=== PATIENT | female | born 1940 | race Caucasian/White ===

== ENCOUNTER 2018-07-24 10:39 | Inpatient (IN) | payer MEDICARE, OTHER ==
[~2018-07-24] VITALS: Ht 149.9 cm; Wt 75.2 kg
[2018-07-24] MEDS ORDERED: IPRATROPIUM (NEB) 0.5 MG/2.5 ML AMP INH STA (10:58)
[2018-07-24] MEDS ORDERED: ALBUTEROL 0.5% (NEB) 2.5 MG/0.5 ML AMP INH STA (10:58)
[2018-07-24] MEDS ORDERED: SOD CHLORIDE 0.9% 500 ML IV STA (10:58)
[2018-07-24] MEDS ORDERED: ASPIRIN 325 MG TAB PO ONE (13:00)
[2018-07-24] MEDS ORDERED: ONDANSETRON 4 MG INJ IV PRN ×2 (13:30→14:00)
[2018-07-24] MEDS ORDERED: ACETAMINOPHEN 325 MG TAB PO PRN (13:30)
[2018-07-24] MEDS ORDERED: LOSA100T15 PO (13:40)
[2018-07-24] MEDS ORDERED: WARF2.5T PO (13:41)
[2018-07-24] MEDS ORDERED: CARV12.579 PO (13:41)
[2018-07-24] MEDS ORDERED: FURO40TA4 PO (13:41)
[2018-07-24] MEDS ORDERED: ERGO2000 PO (13:42)
[2018-07-24] MEDS ORDERED: ASPI81TA52 PO (13:42)
--- NOTE | 2018-07-24 13:57 | ERD ---
ER Documentation Chief Complaint Chief Complaint SOB X 2 WEEKS , WORSE TODAY WITH CHEST PRESSURE AND BACK PAIN HPI This is an 78-year-old Ni[place]an-speaking female that presents to the emergency department complaining of generalized weakness for the past 2 weeks. The patient indicates that she has been experiencing shortness of breath. She indicates that the shortness of breath is worse with exertion. She denies any swelling of her lower extremities. She is also experiencing paroxysmal nocturnal dyspnea. She indicates she has a history of chronic back pain but denies any changes in her bladder or bowel frequency, no saddle anesthesia. She also indicates that this morning upon awakening she developed chest pressure. She stated the chest pain was a dull achy sensation on the midportion of her chest that did not radiate to the neck arm back or jaw. She denies any recent travel or prolonged immobilization. The patient takes Coumadin and has an AICD. ROS All systems reviewed and are negative except as per history of present illness. Medications Home Meds Reported Medications Aspirin (Low Dose Aspirin) 81 Mg Tablet.dr, 81 MG PO DAILY, #30 TAB 07/24/18 Ergocalciferol (Vitamin D2) (VITAMIN D2) 2,000 Unit Tablet, 2000 UNIT PO DAILY, TAB 07/24/18 Carvedilol* (Carvedilol*) 12.5 Mg Tablet, 12.5 MG PO BID, #60 TAB 07/24/18 Furosemide* (Furosemide*) 40 Mg Tablet, 40 MG PO DAILY, TAB 07/24/18 Warfarin Sodium* (Coumadin*) 2.5 Mg Tablet, 2.5 MG PO DAILY, TAB 07/24/18 Losartan Potassium* (Losartan Potassium*) 100 Mg Tablet, 100 MG PO DAILY, TAB 07/24/18 Allergies Allergies: Coded Allergies: No Known Allergy (Unverified , 07/24/18) PMhx/Soc History of Surgery: Yes (pacemaker october 2017) Anesthesia Reaction: No Hx Neurological Disorder: No Hx Respiratory Disorders: No Hx Cardiac Disorders: Yes (htn) Hx Psychiatric Problems: No Hx Miscellaneous Medical Probl: No Hx Alcohol Use: No Hx Substance Use: No Hx Tobacco Use: No Smoking Status: Never smoker Physical Exam Vitals Vital Signs Date Temp Pulse Resp B/P (MAP) Pulse Ox O2 O2 Flow FiO2 Time Delivery Rate 07/24/18 75 22 100 21 12:43 07/24/18 Nasal 2.0 10:52 Cannula 07/24/18 98.8 84 28 148/55 100 10:41 (86) Physical Exam Constitutional:Well-developed. Well-nourished. HEENT:Normocephalic. Atraumatic.Pupils were equal round reactive to light. Moist mucous membranes.No tonsillar exudates. Neck: No nuchal rigidity. No lymphadenopathy. No posterior cervical spine tenderness or step-offs. Respiratory: Not using accessory muscles of respiration.Lungs were clear to auscultation bilaterally. No rhonchi. No rales. Bilateral rhonchi Cardiovascular: Regular rate regular rhythm. S1-S2 is normal. No murmurs. No rubs. GI: Abdomen was soft. Nontender. Non Distended. No pulsatile abdominal masses or bruits. No rebound. No guarding. Bowel sounds were present and normal. Muscle skeletal: Full range of motion of both the upper and lower extremities bilaterally.Normal muscle tone.No assymetrical calf tenderness or swelling. Skin: No petechia, no purpura. No lesions on the palms or the soles of the feet. No maculopapular rash. NEURO: Patient was alert, awake, orientated x3.No facial droop. Gait observed and normal with no ataxia.Speech had regular rate and rhythm. No focal neurological deficits. Result Diagram: 07/24/18 1054 07/24/18 1054 Results 24 hrs Laboratory Tests Test 07/24/18 10:54 White Blood Count 2.6 10^3/ul Red Blood Count 4.08 10^6/ul Hemoglobin 12.7 g/dl Hematocrit 40.0 % Mean Corpuscular Volume 98.0 fl Mean Corpuscular Hemoglobin 31.1 pg Mean Corpuscular Hemoglobin Concent 31.8 g/dl Red Cell Distribution Width 13.8 % Platelet Count 110 10^3/UL Mean Platelet Volume 10.1 fl Immature Granulocytes % 0.000 % Neutrophils % % Segmented Neutrophils % (Manual) 50 % Band Neutrophils % (Manual) 24 % Lymphocytes % % Lymphocytes % (Manual) 24 % Monocytes % % Monocytes % (Manual) 1 % Eosinophils % % Eosinophils % (Manual) 2 % Basophils % % Nucleated Red Blood Cells % 0.0 /100WBC Immature Granulocytes # 0.000 10^3/ul Neutrophils # 10^3/ul Neutrophils # (Manual) 1.3 10^3/ul Band Neutrophils # 0.6 10^3/ul Lymphocytes (Manual) 0.6 10^3/ul Lymphocytes # 10^3/ul Monocytes # 10^3/ul Monocytes # (Manual) 0.0 10^3/ul Eosinophils # 10^3/ul Basophils # 10^3/ul Nucleated Red Blood Cells # 10^3/ul Platelet Estimate DECREASED Polychromasia 3+ Poikilocytosis 1+ Anisocytosis 1+ Tear Drop Cells 1+ Prothrombin Time 23.5 Sec Prothrombin Time Ratio 1.8 INR International Normalized Ratio 2.08 Activated Partial Thromboplast Time 36.3 Sec Sodium Level 143 mmol/L Potassium Level 5.1 mmol/L Chloride Level 108 mmol/L Carbon Dioxide Level 23 mmol/L Anion Gap 12 Blood Urea Nitrogen 54 mg/dl Creatinine 2.23 mg/dl Est Glomerular Filtrat Rate mL/min mL/min Glucose Level 85 mg/dl Calcium Level 9.1 mg/dl Total Bilirubin 0.6 mg/dl Direct Bilirubin 0.00 mg/dl Indirect Bilirubin 0.6 mg/dl Aspartate Amino Transf (AST/SGOT) 123 IU/L Alanine Aminotransferase (ALT/SGPT) 116 IU/L Alkaline Phosphatase 160 IU/L Troponin I 0.160 ng/ml B-Type Natriuretic Peptide 8390 PG/ML Total Protein 7.8 g/dl Albumin 4.2 g/dl Globulin 3.60 g/dl Albumin/Globulin Ratio 1.16 Amylase Level 113 U/L Lipase 87 U/L Current Medications Medications Dose Sig/Daniela Start Time Status Last (Trade) Ordered Route PRN Stop Time Admin Dose Reason Admin Sodium 500 ml @ Q1H STAT 07/24/18 DC Chloride 500 mls/hr IV 10:58 07/24/18 11:57 Albuterol 10 mg ONCE STAT 07/24/18 DC 07/24/18 (Proventil INH 10:58 12:40 0.5% (Neb)) 07/24/18 11:03 Ipratropium 1 mg ONCE STAT 07/24/18 DC 07/24/18 [place] INH 10:58 12:40 (Atrovent 07/24/18 11:03 0.02% (Neb)) Aspirin 325 mg ONCE ONCE 07/24/18 DC (Aspirin) PO 13:00 07/24/18 13:44 Ondansetron 4 mg ER BRIDGE 07/24/18 HCl (Zofran PRN IV 13:30 Inj) NAUSEA/VOMITI 07/25/18 13:29 NG 650 mg ER BRIDGE 07/24/18 Acetaminophen PRN PO 13:30 (Tylenol .MILD PAIN 07/25/18 13:29 Tab) 1-3 OR TEMP Procedures/MDM The patient presented to the emergency department with chest pain. My clinical evaluation and workup was to distinguish minor causes of chest pain from acute life threatening conditions such as myocardial infarction, pulmonary embolism, aortic dissection, esophageal rupture, cardiac tamponade. The patient was placed on a secured entrance monitor and continuous pulse oximetry. IV access established by nursing staff. The patient was given aspirin. 12 Lead EKG tracing ordered and reviewed by myself showed: Normal sinus rhythm of 81 bpm and no arrhythmia. SC interval normal. QRS duration normal. No ST segment elevation No ST segment depression. No changes consistent with acute ischemia. The patient was also complaining of shortness of breath. The patient however I did not feel was experiencing a pulmonary embolism. The patient a low pretest probability according to the Wells criteria the patient is currently on Coumadin. Chest radiograph was reviewed by myself the radiologist indicate the following: No acute cardiopulmonary disease. Cardiomegaly with left-sided AICD in place. The patient's troponin was elevated . she had received aspirin. The troponin was 0.160. The patient's BNP was also elevated at 8390. She does also have renal disease which could be exacerbating the BMP but given her symptoms I did feel required admission for serial twelve-lead EKG tracings and cardiac set of enzymes. She received nebulizer treatments of albuterol and Atrovent was significantly improved her dyspnea in addition to intravenous Lasix. The patient will be admitted to the hospitalist Dr. Zavaleta to the telemetry service. Critical Care: Time: 40 minutes Treatments/Evaluations: Close monitoring and treatment of unstable vital signs, cardiorespiratory, and neurologic status, while maintaining tight balance of fluid, respiratory, and cardiac interventions. Time does not include performing any of the above billable procedures. Departure Diagnosis: Primary Impression: Non-STEMI (non-ST elevated myocardial infarction) Additional Impression: CHF (congestive heart failure) Heart failure type: unspecified Heart failure chronicity: acute Qualified Codes: I50.9 - Heart failure, unspecified Condition: Serious RAMÓN SAGE MD July 24, 2018 13:57
[2018-07-24] MEDS ORDERED: FUROSEMIDE 40 MG INJ IV ONE (14:00)
[2018-07-24] MEDS ORDERED: HYDROCODONE/APAP (5/325) TAB PO PRN (14:00)
[2018-07-24] MEDS ORDERED: ZOLPIDEM 5 MG TAB PO PRN (14:00)
[2018-07-24] MEDS ORDERED: morphine 2 MG INJ IV PRN (14:00)
[2018-07-24] MEDS ORDERED: NACL 0.9% 3 ML SYG IV SCH (14:00)
[2018-07-24] MEDS ORDERED: DOCUSATE SODIUM 100 MG CAP PO PRN (14:00)
--- NOTE | 2018-07-24 14:06 | HP ---
Date/Time of Note Date/Time of Note DATE: 07/24/18 TIME: 13:58 Assessment/Plan VTE Prophylaxis SCD applied (from Nsg): Yes Pharmacological prophylaxis: NA/contraindicated Pharm contraindication: blood coag disorder Lines/Catheters IV Catheter Type (from Nrsg): Saline Lock Assessment/Plan Hospital Course 1. Chest pain with radiation to the back Patient with mild elevation of troponin in setting of renal failure Aspirin and statin Cardiology consultation obtained Follow-up echo Patient is currently denying any chest pain Follow-up on troponins, A1c and lipid profile 2. Acute respiratory distress Chest x-ray with no evidence of failure or pneumonia, lung sounds are normal BNP is slightly elevated but in the setting of renal failure Lasix IV for possible mild congestion Supplement oxygen as needed 3. History of VA with subsequent AICD placement Continue home cardiac meds Cardiology consultation obtained 2D echo 4. Bicytopenia with leukopenia and thrombocytopenia Monitor 5. Transaminitis Ultrasound the abdomen to evaluate for cirrhosis Hepatitis viral panel Patient with leukopenia, thrombocytopenia and macrocytosis all of which are suspicious for liver disease 6. Acute versus chronic kidney disease Baseline renal function is unknown Nephrology consultation obtained Renal ultrasound 7. Obesity Ultrasound abdomen to evaluate for [place] Prophylaxis: SCDs Result Diagram: 07/24/18 1054 07/24/18 1054 Results 24hrs Laboratory Tests Test 07/24/18 10:54 White Blood Count 2.6 L Red Blood Count 4.08 L Hemoglobin 12.7 Hematocrit 40.0 Mean Corpuscular Volume 98.0 Mean Corpuscular Hemoglobin 31.1 Mean Corpuscular Hemoglobin Concent 31.8 L Red Cell Distribution Width 13.8 Platelet Count 110 L Mean Platelet Volume 10.1 Immature Granulocytes % 0.000 L Neutrophils % Segmented Neutrophils % (Manual) 50 Band Neutrophils % (Manual) 24 H Lymphocytes % Lymphocytes % (Manual) 24 Monocytes % Monocytes % (Manual) 1 Eosinophils % Eosinophils % (Manual) 2 Basophils % Nucleated Red Blood Cells % 0.0 Immature Granulocytes # 0.000 Neutrophils # Neutrophils # (Manual) 1.3 L Band Neutrophils # 0.6 Lymphocytes (Manual) 0.6 L Lymphocytes # Monocytes # Monocytes # (Manual) 0.0 L Eosinophils # Basophils # Nucleated Red Blood Cells # Platelet Estimate DECREASED Polychromasia 3+ Poikilocytosis 1+ Anisocytosis 1+ Tear Drop Cells 1+ Prothrombin Time 23.5 H Prothrombin Time Ratio 1.8 INR International Normalized Ratio 2.08 Activated Partial Thromboplast Time 36.3 H Sodium Level 143 Potassium Level 5.1 Chloride Level 108 Carbon Dioxide Level 23 Anion Gap 12 Blood Urea Nitrogen 54 H Creatinine 2.23 H Est Glomerular Filtrat Rate mL/min Glucose Level 85 Calcium Level 9.1 Total Bilirubin 0.6 Direct Bilirubin 0.00 Indirect Bilirubin 0.6 Aspartate Amino Transf (AST/SGOT) 123 H Alanine Aminotransferase (ALT/SGPT) 116 H Alkaline Phosphatase 160 H Troponin I 0.160 *H B-Type Natriuretic Peptide 8390 H Total Protein 7.8 Albumin 4.2 Globulin 3.60 H Albumin/Globulin Ratio 1.16 Amylase Level 113 Lipase 87 HPI/ROS Admit Date/Time Admit Date/Time July 24, 2018 Hx of Present Illness Patient is an 78-year-old female with a history of VA, hypertension as well as AICD placement for unclear reasons. According daughter AICD was placed after VA hence is likely secondary to CHF. Patient presents with 2 weeks of worsening shortness of breath with decreased functional status as well as chest pain with radiation to the back over the past 2 days. In ER troponin is mildly elevated, renal disease is noted and chest x-ray is normal. Patient has no complaints at this time and is currently denying chest pain. ROS Constitutional: no complaints, improved Eyes: no complaints ENT: no complaints Respiratory: shortness of breath Cardiovascular: chest pain Gastrointestinal: no complaints Genitourinary: no complaints Musculoskeletal: back pain Skin: no complaints Neurologic: no complaints Endocrine: no complaints Lymphatic: no complaints Psychological: no complaints, nl mood/affect Immunologic: no complaints PMH/Family/Social Past Medical History As per HPI Medications Current Medications Ondansetron HCl (Zofran Inj) 4 mg ER BRIDGE PRN IV NAUSEA/VOMITING; Start 07/24/18 at 13:30; Stop 07/25/18 at 13:29 Acetaminophen (Tylenol Tab) 650 mg ER BRIDGE PRN PO .MILD PAIN 1-3 OR TEMP; Start 07/24/18 at 13:30; Stop 07/25/18 at 13:29 Furosemide (Lasix) 40 mg ONCE ONCE IV ; Start 07/24/18 at 14:00; Stop 07/24/18 at 14:01; Status UNV Coded Allergies: No Known Allergy (Unverified , 07/24/18) Past Surgical History AICD placement Family History Significant Family History: no pertinent family hx Social History Alcohol Use: rarely Smoking Status: Never smoker Drug Use: none Exam/Review of Systems Vital Signs Vitals Vital Signs Date Temp Pulse Resp B/P (MAP) Pulse Ox O2 O2 Flow FiO2 Time Delivery Rate 07/24/18 75 22 100 21 12:43 07/24/18 Nasal 2.0 10:52 Cannula 07/24/18 98.8 148/55 10:41 (86) Exam Constitutional: alert, oriented Respiratory: clear to auscultation Cardiovascular: regular rate and rhythm Gastrointestinal: soft; No distended Musculoskeletal: nl extremities to inspection STANLEY VENEGAS July 24, 2018 14:06
[2018-07-24] MEDS: ACETAMINOPHEN 325 MG TAB PO PRN (16:12)
[2018-07-24] MEDS: SOD CHLORIDE 0.9% 1,000 ML IV SCH (16:12)
[2018-07-24 18:51] VITALS: BP 101/52; PULSE 70; RESP 20
[2018-07-24 18:52] VITALS: Ht 149.9 cm; Wt 75.2 kg
[2018-07-24 20:00] VITALS: PULSE 70
[2018-07-24 23:40] VITALS: BP 100/54; PULSE 70; RESP 18
[2018-07-25] VITALS (13 sets, daily range): BP systolic 100–124; BP diastolic 51–58; PULSE 61–75; RESP 18–20
--- NOTE | 2018-07-25 00:03 | CONS ---
DATE OF ADMISSION: 07/24/2018 DATE OF CONSULTATION: 07/24/2018 REASON FOR CONSULTATION: Positive troponin and chest pain in the setting of renal failure, assess significance. REQUESTING PHYSICIAN: Stanley Zavaleta MD HISTORY OF PRESENT ILLNESS: Ms. Nuno is a very pleasant 78-year-old female with a history of prior [place], hypertension, ICD, congestive heart failure who presented with complaints of worsening shortness of breath x2 weeks as well as an episode of chest pain radiating towards her back, poorly described after questioning. Upon arrival in the emergency department, temperature of 98.8, blood pressure 140/55, pulse 84, respiratory rate 28, satting 100%. The patient's labs revealed a sodium of 142, potassium 5.1, creatinine 2.23, BUN 54, AST 123, ALT 116, alkaline phosphatase 160. Troponin 0.160. BNP of 8390. INR of 2.0. UA borderline positive with lots of red blood cells. The patient underwent a KUB revealing cholelithiasis, mild bilateral renal atrophy with increased echogenicity consistent with chronic renal disease and a chest x-ray that did reveal no acute cardiopulmonary disease, cardiomegaly with left-sided AICD in place. The patient's electrocardiogram revealed normal sinus rhythm with rate of 81, normal axis with borderline inferior Q's and lateral T-wave inversion as well as poor anterior progression and borderline anterior Q's. The patient has been treated with a dose of Lasix 40 IV x1, aspirin, IV fluid hydration -- 100 mL, and DuoNebs. The patient now awaits admit to the floor, and since arrival to the ER, the patient has had low-grade fevers. PAST MEDICAL HISTORY: As above in HPI. MEDICATIONS CURRENTLY IN HOSPITAL: 1. Coumadin 2.5 mg daily. 2. Aspirin 81 mg daily. 3. Lasix 20 mg daily. 4. Losartan 100 mg daily. 5. Vitamin D. 6. Coreg 12.5 mg p.o. b.i.d. 7. Zofran p.r.n. 8. Tylenol p.r.n. 9. [place] p.r.n. 10. Morphine p.r.n. 11. Ambien p.r.n. 12. IV fluid hydration. ALLERGIES: NO KNOWN DRUG ALLERGIES. SOCIAL HISTORY: No current tobacco, EtOH, or illicit drugs. FAMILY HISTORY: No history of sudden cardiac or early CAD. REVIEW OF SYSTEMS: As above in HPI. CONSTITUTIONAL: Positive for fevers and chills. PULMONARY: Shortness of breath. CARDIOVASCULAR: Chest pain, currently improved. GASTROINTESTINAL: No vomiting. GENITOURINARY: Renal failure. PSYCHIATRIC: No documented psych history. NEUROLOGIC: No documented CVA. ENDOCRINE: No documented history of diabetes mellitus. PHYSICAL EXAMINATION: VITAL SIGNS: Temperature of 100.4, blood pressure 103/50, pulse 70, respiratory rate 18, satting 99%. GENERAL: The patient is alert, awake, complaining of shortness of breath and intermittent chest pain. NECK: JVP approximately 9 cm of water. CHEST: Fair air movement throughout. HEART: Regular rate and rhythm. Normal S1, S2, I/ systolic murmur, nondisplaced PMI. ABDOMEN: Positive bowel sounds, soft. EXTREMITIES: No edema, 1+ pulses in bilateral posterior tibial. LABORATORIES: As above in HPI with elevated LFTs. IMAGING STUDIES: As above in HPI. No further imaging studies for my review at this time. ECG: As above in HPI. No further electrocardiograms for my review at this time. IMPRESSION: 1. Positive troponin, assess significance in the setting of renal failure. 2. Chest pain, somewhat poorly described and currently resolved. 3. Abnormal electrocardiogram with poor R-wave progression and lateral T-wave inversions. 4. Hypertension with currently borderline hypotension. 5. Fevers. 6. Renal failure. 7. Leukopenia. 8. History of ICD. 9. Coagulopathy secondary to Coumadin. 10. Questionable history of cardiac arrhythmia. 11. Probable history of cardiomyopathy. RECOMMENDATIONS: 1. At this time, would admit patient to telemetry monitoring to follow rhythm and rate control closely. 2. Would continue the patient's baseline losartan and carvedilol but follow blood pressure and creatinine closely. 3. Continue the patient's Coumadin for now and the patient's baby aspirin. 4. We will continue to trend the patient's cardiac enzymes. 5. Check a 2D echo for this patient's ejection fraction, wall motion, and major abnormalities. 6. Continue the patient's gentle IV fluid at this time but would likely to consider to continue fluid or discontinue the patient's Lasix. 7. Initiate antibiotics for treatment of infection and ongoing fevers and check culture data. Follow up closely. 8. Probable need for assessment of the patient's vasculature and ischemic burden by either a catheterization or cardiac stress test during this hospitalization. Thank you for allowing me to take part in the care of this patient. I will continue to follow along very closely with you. Further recommendations will be made as the patient progresses through her inpatient hospital course. Dictated By: YOGI SAINI/ASHELY Conf#: [id number] DID#: [id number] CC: STANLEY ZAVALETA MD;*EndCC* MTDD
--- NOTE | 2018-07-25 00:45 | CONS ---
DATE OF ADMISSION: 07/24/2018 DATE OF CONSULTATION: 07/24/2018 TYPE OF CONSULTATION: Nephrology. REASON FOR CONSULTATION: Acute kidney injury, possible chronic kidney disease. PHYSICIAN REQUESTING CONSULT: Ayan Zavaleta MD HISTORY OF PRESENT ILLNESS: This is an 78-year-old female with a past medical history of hypertensio n, history of coronary artery disease, history of congestive heart failure and possible history of ca rdiomyopathy who presents to the hospital with increased shortness of breath and decreased functional status for the last several days. The patient states, over the past several days, she has had incre ased shortness of breath and has had dyspnea on exertion. As a result, she came to the emergency che[place] . Upon arrival, the patient had a chest x-ray which showed findings of cardiomegaly with AICD place ment. The patient in the emergency room also was noted to have elevated troponins and elevated creat inine. The patient was also noted to have pyuria in on urinalysis. In the emergency room, the patie nt was given diuretic therapy and admitted to telemetry for further evaluation. In terms of patient's renal history, the patient denies any prior history of CKD or acute kidney inju ry. She denies any hemoptysis, hematemesis or hematochezia. PAST MEDICAL HISTORY: As stated above, history of coronary artery disease, history of pacemaker plac ement and history of hypertension. PAST SURGICAL HISTORY: Status post pacemaker placement, status post AICD placement. FAMILY HISTORY: No family history of kidney disease. SOCIAL HISTORY: Does not drink, smoke or do drugs. MEDICATIONS: Reviewed. REVIEW OF SYSTEMS: Pertinent positives stated in the HPI, otherwise negative. PHYSICAL EXAMINATION: VITAL SIGNS: Blood pressure is 101/52, respirations ____, pulse 70, temperature 98.2. HEENT: Head is normocephalic. NECK: Supple. HEART: Regular rate. LUNGS: Show diminished breath sounds at the base. ABDOMEN: Soft, nontender to palpation without rebound or guarding. EXTREMITIES: Negative for clubbing or cyanosis. Trace edema. DERMATOLOGIC: No rashes. MUSCULOSKELETAL: No joint effusion. NEUROLOGIC: No focal deficits. LABORATORY DATA: Shows a BUN of 54, creatinine of 0.23, elevated troponins and elevated BNP. Urinal ysis was reviewed. ASSESSMENT AND PLAN: This is an 78-year-old female who presents with: 1. Nonoliguric acute kidney injury with unknown baseline creatinine, probable chronic kidney disease . Etiology of current acute kidney injury may be multifactorial secondary to hemodynamics, questiona ble cardiorenal syndrome. The patient's urinalysis does show evidence of pyuria and hematuria. Bre l ultrasound shows increased echogenicity consistent with chronic kidney disease. Recommendation at this point is to continue current treatment plan and continue gentle diuretic therapy. Would hold AR B this time. Continue supportive care, renally dose meds and avoid nephrotoxins. 2. Anemia. Monitor hemoglobin and hematocrit levels. 3. Mineral bone disorder, monitor calcium and phosphorus levels. 4. Acute respiratory failure, etiology may be secondary to non-STEMI ischemia. A chest x-ray shows no overt evidence of heart failure although, clinically, the patient does have elevated JVD. Recomme ndation is to continue medical management, monitor closely on diuretic therapy and to consider Cardio logy evaluation. 5. Elevated troponin with chest pain. The etiology may be non-STEMI type 1 versus type 2. Continue to monitor serial troponins. Follow up 2D echo. Continue aspirin and statin therapy. 6. History of coronary artery disease with history of AICD placement ____. 7. Transaminitis, etiology may be secondary to fatty liver versus other. Check hepatitis panel and follow up with an ultrasound. 8. Obesity. Continue dietary modification. Thank you, Dr. Zavaleta, for this interesting consult. It will be a pleasure to follow the patient wi th throughout hospital course. Dictated By: JIGNA VYAS DO NR/NTS Conf#: [id number] DID#: [id number] CC: AYAN ZAVALETA MD;*EndCC*
[2018-07-25] MEDS: PIPER-TAZO 3.375 GM IV (PMX) 100 ML IVPB SCH ×3 (01:11→17:29)
[2018-07-25] MEDS ORDERED: FUROSEMIDE 40 MG TAB PO SCH (09:00)
[2018-07-25] MEDS ORDERED: LOSARTAN 50 MG TAB PO SCH (09:00)
[2018-07-25] MEDS: ASPIRIN (EC) 81 MG TAB PO SCH (09:15)
[2018-07-25] MEDS: CHOLECALCIFEROL 2,000 UNIT CAP PO SCH (09:17)
[2018-07-25] MEDS: SOD CHLORIDE 0.9% 1,000 ML IV SCH ×2 (09:22→14:45)
--- NOTE | 2018-07-25 12:31 | PN ---
DATE: 07/25/2018 SUBJECTIVE: The patient is stable. No events overnight. OBJECTIVE: VITAL SIGNS: Blood pressure is , respirations 70, respirations 20, temperature 97.7. HEENT: Head is normocephalic. NECK: Supple. HEART: Regular rate. LUNGS: Show diminished breath sounds at the base. ABDOMEN: Soft, nontender to palpation without rebound or guarding. EXTREMITIES: Negative for clubbing, cyanosis. No edema. DERMATOLOGIC: No rashes. MUSCULOSKELETAL: No joint effusions. NEUROLOGIC: No change in exam. MEDICATIONS: Have been reviewed. LABORATORY DATA: Have been reviewed. ASSESSMENT AND PLAN: 1. Nonoliguric acute kidney injury on top of chronic kidney disease with unknown baseline creatinine . Etiology of acute kidney injury is likely multifactorial secondary to hemodynamics. The patient's renal function continues to decline. At this point, continue current treatment plans, supportive ca re, renally dose all meds. We would hold ANALILIA inhibitor or ARB at this time. We would also consider deescalating diuretic therapy in the setting of worsening renal failure. 2. Anemia. Monitor hemoglobin and hematocrit levels. 3. Mineral bone disorder, monitor calcium and phosphorus levels. 4. Acute respiratory failure. Etiology may be secondary to ischemia, cardiac. The patient is curre ntly stable on nasal cannula. Continue to monitor. Cardiology has been consulted. Follow up 2D ech o. 5. Elevated troponin and chest pain. Etiology may be non-ST elevation myocardial infarction type 1 versus type 2. Continue to trend serial troponins. Follow up 2D echo. Continue medical management. 6. History of coronary artery disease and history of AICD placement. 7. Transaminitis. Continue to monitor. 8. Obesity. Continue dietary modification. Dictated By: JIGNA VYAS DO NR/NTS Conf#: [id number] DID#: [id number] CC: YOGI COTTO MD; STANLEY VENEGAS MD;*[facility]*
--- NOTE | 2018-07-25 17:07 | CONS ---
Assessment/Plan Assessment/Plan Hospital Course (Demo Recall) IMPRESSION: 1. Positive troponin, assess significance in the setting of renal failure-now trended negative and denies cp 2. Chest pain, somewhat poorly described and currently resolved. 3. Abnormal electrocardiogram with poor R-wave progression and lateral T-wave inversions. 4. Hypertension with currently borderline hypotension-improved with IVF hydration 5. Fevers. 6. Renal failure. 7. Leukopenia. 8. History of ICD. 9. Coagulopathy secondary to Coumadin. 10. Questionable history of cardiac arrhythmia. 11. Probable history of cardiomyopathy. 12. 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 ? indication arrythmia -Willf/u echo -Continue abx's and f/u cx data Consultation Date/Type/Reason Admit Date/Time July 24, 2018 at 13:02 Initial Consult Date 07/25/18 Type of Consult Cardiology Reason for Consultation positive troponin Requesting Provider: STANLEY VENEGAS Date/Time of Note DATE: 07/25/18 TIME: 17:00 Exam/Review of Systems Vital Signs Vitals Vital Signs Date Temp Pulse Resp B/P (MAP) Pulse Ox O2 O2 Flow FiO2 Time Delivery Rate 07/25/18 98.1 70 20 124/58 97 Room Air 15:03 (80) 07/25/18 2.0 09:00 07/24/18 21 12:43 Intake and Output 07/24/18 07/24/18 07/25/18 1515:00 23:00 07:00 IntakeIntake Total 1500 ml BalanceBalance 1500 ml Exam Exam Review of Systems: CONSTITUTIONAL: No fevers, chills. PULMONARY: No sob CARDIOVASCULAR: No chest pain/palpitations GASTROINTESTINAL: No nausea/vomiting. GENITOURINARY: No hematuria/dysuria. MUSCULOSKELETAL: No myagias/arthalgias. PSYCHIATRIC: The patient denies depression. NEUROLOGIC: No weakness Constitutional: alert Psych: no complaints Head: normocephalic ENMT: mucosa pink and moist Neck: supple, jvd (9 cm water) Respiratory: diminished breath sounds (at bases/B) Cardiovascular: regular rate and rhythm Gastrointestinal: soft, non-tender Musculoskeletal: muscle tone (normal) Extremities: edema (none) Neurological: other (No focal deficits) Labs Result Diagram: 07/25/18 0630 07/25/18 0630 Results 24hrs Laboratory Tests Test 07/24/18 17:56 07/25/18 00:34 07/25/18 06:30 07/25/18 12:12 Troponin I 0.284 *H 0.156 *H 0.094 0.075 Creatine Kinase 192 305 H 321 H Creatine Kinase 0.8 1.1 1.3 Index Creatinine Kinase MB 1.55 3.50 H 4.16 H (Mass) White Blood Count 22.3 #H Red Blood Count 3.40 L Hemoglobin 10.6 L Hematocrit 33.1 L Mean Corpuscular 97.4 Volume Mean Corpuscular 31.2 Hemoglobin Mean Corpuscular 32.0 Hemoglobin Concent Red Cell 14.3 Distribution Width Platelet Count 94 L Mean Platelet Volume 10.2 Immature 6.500 H Granulocytes % Neutrophils % Segmented 65 Neutrophils % (Manual) Band Neutrophils % 19 H (Manual) Lymphocytes % Lymphocytes % 13 L (Manual) Reactive Lymphocytes 1 H % (Manual) Monocytes % Eosinophils % Basophils % Basophils % (Manual) 2 Nucleated Red Blood 0.0 Cells % Immature 1.450 H Granulocytes # Neutrophils # Neutrophils # 15.4 H (Manual) Band Neutrophils # 4.2 H Lymphocytes (Manual) 2.8 Lymphocytes # Reactive Lymphocytes 0.2 H # Monocytes # Eosinophils # Basophils # Basophils # (Manual) 0.4 H Nucleated Red Blood Cells # Platelet Estimate DECREASED Sodium Level 142 Potassium Level 4.1 Chloride Level 114 H Carbon Dioxide Level 20 L Anion Gap 8 Blood Urea Nitrogen 65 H Creatinine 2.41 H Est Glomerular Filtrat Rate mL/min Glucose Level 136 # Hemoglobin A1c 6.1 H Calcium Level 8.2 L Phosphorus Level 3.5 Magnesium Level 2.2 Total Bilirubin 0.5 Direct Bilirubin 0.00 Indirect Bilirubin 0.5 Aspartate Amino 69 H Transf (AST/SGOT) Alanine 85 H Aminotransferase (AL T/SGPT) Alkaline Phosphatase 69 # Total Protein 5.7 #L Albumin 3.1 #L Globulin 2.60 Albumin/Globulin 1.19 Ratio Triglycerides Level 281 H Cholesterol Level 155 LDL Cholesterol, 67 Calculated HDL Cholesterol 32 L Cholesterol/HDL 4.8 Ratio Vitamin B12 Level > 1000 H Folate > 20.0 H Free Thyroxine Index 2.26 Thyroxine (T4) 5.0 L Triiodothyronine 45.1 H (T3) Uptake Hepatitis B Surface NEGATIVE Antigen Hepatitis B Core NEGATIVE Total Antibody Hepatitis C Antibody NEGATIVE Medications Medications Current Medications Sodium Chloride 1,000 ml @ 50 mls/hr Q20H IV Last administered on 07/25/18at 09:22; Admin Dose 50 MLS/HR; Start 07/24/18 at 13:58; Stop 07/26/18 at 05:57 IV Flush (NS 3 ml) 3 ml PER PROTOCOL IV ; Start 07/24/18 at 14:00 Ondansetron HCl (Zofran Inj) 4 mg Q6H PRN IV NAUSEA/VOMITING; Start 07/24/18 at 14:00 Acetaminophen (Tylenol Tab) 650 mg Q6H PRN PO .PAIN 1-3 OR TEMP Last administered on 07/24/18at 16:12; Admin Dose 650 MG; Start 07/24/18 at 14:00 Acetaminophen/ Hydrocodone Bitart ([place] (5/325)) 1 tab Q6H PRN PO .MOD PAIN 4- 6; Start 07/24/18 at 14:00 Morphine Sulfate (morphine) 2 mg Q4H PRN IV .SEVERE PAIN 7-10; Start 07/24/18 at 14:00 Docusate Sodium (Colace) 100 mg Q12H PRN PO .CONSTIPATION; Start 07/24/18 at 14:00 Zolpidem Tartrate (Ambien) 5 mg QHS PRN PO .INSOMNIA; Start 07/24/18 at 14:00 Aspirin (Halfprin) 81 mg DAILY PO Last administered on 07/25/18at 09:15; Admin Dose 81 MG; Start 07/25/18 at 09:00 Carvedilol (Coreg) 12.5 mg BID PO Last administered on 07/25/18at 09:17; Admin Dose 12.5 MG; Start 07/24/18 at 21:00 Losartan Potassium (Cozaar) 100 mg DAILY PO ; Start 07/25/18 at 09:00; Status Hold Warfarin Sodium (Coumadin) 2.5 mg DAILY@1700 PO ; Start 07/25/18 at 17:00 Cholecalciferol (Vitamin D) 2,000 unit DAILY PO Last administered on 07/25/18at 09:17; Admin Dose 2,000 UNIT; Start 07/25/18 at 09:00 Piperacillin Sod/ Tazobactam Sod 100 ml @ 200 mls/hr Q8H IVPB Last administer ed on 07/25/18at 09:12; Admin Dose 200 MLS/HR; Start 07/25/18 at 02:00 Sodium Chloride 1,000 ml @ 75 mls/hr [id number] IV Last administered on 07/25/18at 14:45; Admin Dose 75 MLS/HR; Start 07/25/18 at 14:30 YOGI COTTO July 25, 2018 17:07
[2018-07-25] MEDS: WARFARIN 2.5 MG TAB PO SCH (17:57)
--- NOTE | 2018-07-25 19:10 | RADRPT ---
Echocardiogram Report Patient Name: Elliot ZAMORAnt ID: [id number] : [id number] (78y 6m)Study Date: 07/25/2018 1:02:58 PM Gender: FAccession #: [id number] Tech: [facility] [place] Location: [facility] Ref.Physician: STANLEY VENEGAS Height(Cm): 160 BSA: 1.79Weight(Kg): 71.7 Quality: AdequateOrder Physician: STANLEY VENEGAS Account #: Procedures: Echocardiographic Report: Transthoracic echocardiogram examination. Indications: Nontransmural Myocardial Infarction. Measurements: 2D/M Mode Doppler Measurement Value Normal Range Measurement Value Normal Range LA Volume 66.9 [ 22.0 - 52.0 ] ml AV Peak Monty 1.3 [ 100.0 - 170.0 ] cm/sec LA Volume Index 38 [ 16 - 34 ] ml/m2 AV Peak PG 7.0 [ 2.0 - 9.0 ] mmHg LVOT Peak Monty 0.8 [ 70.0 - 110.0 ] cm/sec LVOT Peak PG 3.0 [ 2.0 - 6.0 ] mmHg MV E Peak Monty 0.6 [ 60.0 - 130.0 ] cm/sec MV A Peak Monty 0.9 [ 100.0 - 120.0 ] cm/sec MV E/A 0.7 [ 0.8 - 1.5 ] ratio MV PHT 78.0 [ 20.0 - 100.0 ] msec MV Decel Time 267 [ 104 - 258 ] msec MV Decel George 2 Lat E` Monty 0.1 [ 10.0 - 15.0 ] cm/sec Lateral E/E` 8.6 [ 1.0 - 2.0 ] ratio Med E` Monty 0.0 cm/sec MV E/A 0.7 [ 0.8 - 1.5 ] ratio MV PHT 78.0 [ 20.0 - 100.0 ] msec MVA PHT 2.8 [ 2.0 - 4.0 ] cm2 TR Peak Monty 2.7 [ 100.0 - 280.0 ] cm/sec TR Peak PG 29.0 mmHg RVSP 32.0 [ 10.0 - 36.0 ] mmHg RA Pressure 3.0 mmHg Findings: Left Ventricle: Normal left ventricular cavity size. Moderate left ventricular systolic dysfunction. Tissue Doppler/Mitral Doppler indices are consistent with impaired relaxation (Stage I diastolic dysfunction). Mild concentric left ventricular hypertrophy. The left ventricular ejection fraction is visually estimated at 30 %. Right Ventricle: Normal right ventricular size. Normal right ventricular systolic function. Linear artifact in right ventricle suggestive of catheter, pacer lead, or ICD lead. Left Atrium: There is moderate enlargement of left atrium appreciated best with JAYA of 38 cm2. Right Atrium: The right atrium is normal in size and appearance. Atrial Septum: Normal atrial septum. Mitral Valve: Mild mitral annular calcification. Mild mitral regurgitation. Aortic Valve: Aortic cusps appear mildly calcified with sclerosis this is imaged only in apcial views. Trace aortic regurgitation. Tricuspid Valve: Normal appearance of the tricuspid valve. The estimated Peak PA Systolic Pressure is 32 mmHg. There is mild tricuspid regurgitation. Pulmonic Valve: The pulmonic valve is not well visualized. Pericardium: Normal pericardium with no significant pericardial effusion. Aorta: Normal aortic root imaged only in apical views. IVC: Normal inferior vena cava appearance. Pulmonary Artery: Pulmonary artery is not well visualized. Conclusions: Normal left ventricular cavity size. Moderate left ventricular systolic dysfunction. Tissue Doppler/Mitral Doppler indices are consistent with impaired relaxation (Stage I diastolic dysfunction). Mild concentric left ventricular hypertrophy. The left ventricular ejection fraction is visually estimated at 30 %. Normal right ventricular size. Normal right ventricular systolic function. Linear artifact in right ventricle suggestive of catheter, pacer lead, or ICD lead. There is moderate enlargement of left atrium appreciated best with JAYA of 38 cm2. Mild mitral annular calcification. Mild mitral regurgitation. Aortic cusps appear mildly calcified with sclerosis this is imaged only in apcial views. Trace aortic regurgitation. Normal appearance of the tricuspid valve. The estimated Peak PA Systolic Pressure is 32 mmHg. There is mild tricuspid regurgitation. Electronically Signed By: Olu Chapman 2018-07-25 19:09:24 PDT
--- NOTE | 2018-07-25 19:13 | PN ---
Date/Time of Note Date/Time of Note DATE: 07/25/18 TIME: 19:01 Assessment/Plan VTE Prophylaxis Risk score (from Ns)>0 risk: 7 SCD applied (from Ns): Yes Pharmacological prophylaxis: warfarin tx Lines/Catheters IV Catheter Type (from Nrs): Saline Lock Urinary Cath still in place: No Assessment/Plan Hospital Course 1. Chest pain with radiation to the back positive secondary to muscular cramping from sepsis Patient with mild elevation of troponin in setting of renal failure Troponins have trended down and chest pain has resolved Aspirin and statin Cardiology consultation appreciated, medical management at this time Follow-up echo Patient is currently denying any chest pain A1c at 6.1 and LDL at 67 2. Sepsis with bacteremia secondary to UTI Blood and urine cultures are positive for gram-negative rods Zosyn IV IV fluids Follow-up culture specifics ID consultation obtained 3. Dyspnea likely secondary to generalized weakness from sepsis Chest x-ray with no evidence of failure or pneumonia, lung sounds are normal BNP is slightly elevated but in the setting of renal failure DC Lasix IV Supplement oxygen as needed 3. History of DC with subsequent AICD placement Continue home cardiac meds Cardiology consultation appreciated 2D echo 4. Bicytopenia with leukopenia and thrombocytopenia Patient now with leukocytosis secondary to sepsis 5. Transaminitis likely secondary to sepsis LFTs are improving Ultrasound the abdomen shows no evidence of cirrhosis Hepatitis viral panel is negative Continue IV fluids 6. Acute versus chronic kidney disease Etiology likely secondary to sepsis hemodynamics, Baseline renal function is unknown Nephrology consultation appreciated Renal ultrasound shows chronic renal disease Continue IV fluids Have discontinued Lasix Hold losartan 7. Obesity Lifestyle changes 8. Hypertension Continue Coreg Hold losartan secondary to likely acute kidney injury 9. Questionable history of cardiac arrhythmia On Coumadin Prophylaxis: On Coumadin DC planning: Continue IV antibiotics, follow-up on ID recommendations Result Diagram: 07/25/18 0630 07/25/18 0630 Results 24hrs Laboratory Tests Test 07/25/18 00:34 07/25/18 06:30 07/25/18 12:12 Creatine Kinase 192 305 H 321 H Creatine Kinase Index 0.8 1.1 1.3 Creatinine Kinase MB (Mass) 1.55 3.50 H 4.16 H Troponin I 0.156 *H 0.094 0.075 White Blood Count 22.3 #H Red Blood Count 3.40 L Hemoglobin 10.6 L Hematocrit 33.1 L Mean Corpuscular Volume 97.4 Mean Corpuscular Hemoglobin 31.2 Mean Corpuscular Hemoglobin Concent 32.0 Red Cell Distribution Width 14.3 Platelet Count 94 L Mean Platelet Volume 10.2 Immature Granulocytes % 6.500 H Neutrophils % Segmented Neutrophils % (Manual) 65 Band Neutrophils % (Manual) 19 H Lymphocytes % Lymphocytes % (Manual) 13 L Reactive Lymphocytes % (Manual) 1 H Monocytes % Eosinophils % Basophils % Basophils % (Manual) 2 Nucleated Red Blood Cells % 0.0 Immature Granulocytes # 1.450 H Neutrophils # Neutrophils # (Manual) 15.4 H Band Neutrophils # 4.2 H Lymphocytes (Manual) 2.8 Lymphocytes # Reactive Lymphocytes # 0.2 H Monocytes # Eosinophils # Basophils # Basophils # (Manual) 0.4 H Nucleated Red Blood Cells # Platelet Estimate DECREASED Sodium Level 142 Potassium Level 4.1 Chloride Level 114 H Carbon Dioxide Level 20 L Anion Gap 8 Blood Urea Nitrogen 65 H Creatinine 2.41 H Est Glomerular Filtrat Rate mL/min Glucose Level 136 # Hemoglobin A1c 6.1 H Calcium Level 8.2 L Phosphorus Level 3.5 Magnesium Level 2.2 Total Bilirubin 0.5 Direct Bilirubin 0.00 Indirect Bilirubin 0.5 Aspartate Amino Transf (AST/SGOT) 69 H Alanine Aminotransferase (ALT/SGPT) 85 H Alkaline Phosphatase 69 # Total Protein 5.7 #L Albumin 3.1 #L Globulin 2.60 Albumin/Globulin Ratio 1.19 Triglycerides Level 281 H Cholesterol Level 155 LDL Cholesterol, Calculated 67 HDL Cholesterol 32 L Cholesterol/HDL Ratio 4.8 Vitamin B12 Level > 1000 H Folate > 20.0 H Free Thyroxine Index 2.26 Thyroxine (T4) 5.0 L Triiodothyronine (T3) Uptake 45.1 H Hepatitis B Surface Antigen NEGATIVE Hepatitis B Core Total Antibody NEGATIVE Hepatitis C Antibody NEGATIVE Subjective 24 Hr Interval Summary Free Text/Dictation Generalized weakness Exam/Review of Systems Exam Vitals Vital Signs Date Temp Pulse Resp B/P (MAP) Pulse Ox O2 O2 Flow FiO2 Time Delivery Rate 07/25/18 75 17:13 07/25/18 98.1 20 124/58 97 Room Air 15:03 (80) 07/25/18 2.0 09:00 07/24/18 21 12:43 Intake and Output 07/24/18 07/24/18 07/25/18 1515:00 23:00 07:00 IntakeIntake Total 1500 ml BalanceBalance 1500 ml Constitutional: alert, oriented Respiratory: clear to auscultation Cardiovascular: regular rate and rhythm Gastrointestinal: soft; No distended Musculoskeletal: nl extremities to inspection Results Results 24hrs Laboratory Tests Test 07/25/18 00:34 07/25/18 06:30 07/25/18 12:12 Creatine Kinase 192 305 H 321 H Creatine Kinase Index 0.8 1.1 1.3 Creatinine Kinase MB (Mass) 1.55 3.50 H 4.16 H Troponin I 0.156 *H 0.094 0.075 White Blood Count 22.3 #H Red Blood Count 3.40 L Hemoglobin 10.6 L Hematocrit 33.1 L Mean Corpuscular Volume 97.4 Mean Corpuscular Hemoglobin 31.2 Mean Corpuscular Hemoglobin Concent 32.0 Red Cell Distribution Width 14.3 Platelet Count 94 L Mean Platelet Volume 10.2 Immature Granulocytes % 6.500 H Neutrophils % Segmented Neutrophils % (Manual) 65 Band Neutrophils % (Manual) 19 H Lymphocytes % Lymphocytes % (Manual) 13 L Reactive Lymphocytes % (Manual) 1 H Monocytes % Eosinophils % Basophils % Basophils % (Manual) 2 Nucleated Red Blood Cells % 0.0 Immature Granulocytes # 1.450 H Neutrophils # Neutrophils # (Manual) 15.4 H Band Neutrophils # 4.2 H Lymphocytes (Manual) 2.8 Lymphocytes # Reactive Lymphocytes # 0.2 H Monocytes # Eosinophils # Basophils # Basophils # (Manual) 0.4 H Nucleated Red Blood Cells # Platelet Estimate DECREASED Sodium Level 142 Potassium Level 4.1 Chloride Level 114 H Carbon Dioxide Level 20 L Anion Gap 8 Blood Urea Nitrogen 65 H Creatinine 2.41 H Est Glomerular Filtrat Rate mL/min Glucose Level 136 # Hemoglobin A1c 6.1 H Calcium Level 8.2 L Phosphorus Level 3.5 Magnesium Level 2.2 Total Bilirubin 0.5 Direct Bilirubin 0.00 Indirect Bilirubin 0.5 Aspartate Amino Transf (AST/SGOT) 69 H Alanine Aminotransferase (ALT/SGPT) 85 H Alkaline Phosphatase 69 # Total Protein 5.7 #L Albumin 3.1 #L Globulin 2.60 Albumin/Globulin Ratio 1.19 Triglycerides Level 281 H Cholesterol Level 155 LDL Cholesterol, Calculated 67 HDL Cholesterol 32 L Cholesterol/HDL Ratio 4.8 Vitamin B12 Level > 1000 H Folate > 20.0 H Free Thyroxine Index 2.26 Thyroxine (T4) 5.0 L Triiodothyronine (T3) Uptake 45.1 H Hepatitis B Surface Antigen NEGATIVE Hepatitis B Core Total Antibody NEGATIVE Hepatitis C Antibody NEGATIVE Medications Medication Current Medications Sodium Chloride 1,000 ml @ 50 mls/hr Q20H IV Last administered on 07/25/18 09:22; Admin Dose 50 MLS/HR; Start 07/24/18 at 13:58; Stop 07/26/18 at 05:57 IV Flush (NS 3 ml) 3 ml PER PROTOCOL IV ; Start 07/24/18 at 14:00 Ondansetron HCl (Zofran Inj) 4 mg Q6H PRN IV NAUSEA/VOMITING; Start 07/24/18 at 14:00 Acetaminophen (Tylenol Tab) 650 mg Q6H PRN PO .PAIN 1-3 OR TEMP Last administered on 07/24/18at 16:12; Admin Dose 650 MG; Start 07/24/18 at 14:00 Acetaminophen/ Hydrocodone Bitart ([place] (5/325)) 1 tab Q6H PRN PO .MOD PAIN 4- 6; Start 07/24/18 at 14:00 Morphine Sulfate (morphine) 2 mg Q4H PRN IV .SEVERE PAIN 7-10; Start 07/24/18 at 14:00 Docusate Sodium (Colace) 100 mg Q12H PRN PO .CONSTIPATION; Start 07/24/18 at 14:00 Zolpidem Tartrate (Ambien) 5 mg QHS PRN PO .INSOMNIA; Start 07/24/18 at 14:00 Aspirin (Halfprin) 81 mg DAILY PO Last administered on 07/25/18at 09:15; Admin Dose 81 MG; Start 07/25/18 at 09:00 Carvedilol (Coreg) 12.5 mg BID PO Last administered on 07/25/18at 09:17; Admin Dose 12.5 MG; Start 07/24/18 at 21:00 Losartan Potassium (Cozaar) 100 mg DAILY PO ; Start 07/25/18 at 09:00; Status Hold Warfarin Sodium (Coumadin) 2.5 mg DAILY@1700 PO Last administered on 07/25/18at 17:57; Admin Dose 2.5 MG; Start 07/25/18 at 17:00 Cholecalciferol (Vitamin D) 2,000 unit DAILY PO Last administered on 07/25/18 09:17; Admin Dose 2,000 UNIT; Start 07/25/18 at 09:00 Piperacillin Sod/ Tazobactam Sod 100 ml @ 200 mls/hr Q8H IVPB Last administered on 07/25/18at 17:29; Admin Dose 200 MLS/HR; Start 07/25/18 at 02:00 Sodium Chloride 1,000 ml @ 75 mls/hr [id number] IV Last administered on 07/25/18at 14:45; Admin Dose 75 MLS/HR; Start 07/25/18 at 14:30 STANLEY VENEGAS July 25, 2018 19:13
--- NOTE | 2018-07-25 19:28 | RADRPT ---
Vent Rate: 70 bpm RR Interval: 856 msec MA Interval: 212 msec QRS Duration: 92 msec QT Interval: 457 msec QTC Interval: 494 msec P-R-T [place]: [id number] - 1 - -88 degrees Atrial-paced rhythm Low voltage, precordial leads...precordial leads <1.0mV Abnormal T, consider ischemia, diffuse leads...T <-0.20mV, ant/lat/inf Electronically Signed By: Olu Chapman
[2018-07-26] VITALS (13 sets, daily range): BP systolic 103–148; BP diastolic 57–78; PULSE 68–81; RESP 16–30
[2018-07-26] MEDS: PIPER-TAZO 3.375 GM IV (PMX) 100 ML IVPB SCH ×2 (02:16→09:28)
[2018-07-26] MEDS: SOD CHLORIDE 0.9% 1,000 ML IV SCH ×2 (03:50→06:58)
[2018-07-26] MEDS: CHOLECALCIFEROL 2,000 UNIT CAP PO SCH (08:03)
[2018-07-26] MEDS: ASPIRIN (EC) 81 MG TAB PO SCH (08:03)
--- NOTE | 2018-07-26 09:17 | PN ---
DATE: 07/26/2018 SUBJECTIVE: The patient is stable, no events overnight. OBJECTIVE: VITAL SIGNS: Blood pressure is 126/62, pulse 70, respirations 20, temperature 99.0. HEENT: Head is normocephalic. NECK: Supple. HEART: Regular rate. LUNGS: Show diminished breath sounds at the base. ABDOMEN: Soft, nontender to palpation without rebound or guarding. EXTREMITIES: Negative for clubbing, cyanosis, no edema. DERMATOLOGIC: No rashes. MUSCULOSKELETAL: No joint effusion. NEUROLOGIC: No change in exam. MEDICATIONS: Reviewed. LABORATORY DATA: Reviewed. ASSESSMENT AND PLAN: 1. Nonoliguric acute kidney injury on top of chronic kidney disease with unknown baseline creatinine . Etiology of acute kidney injury is likely multifactorial secondary to hemodynamics, possible sepsi s. The patient's renal function continues to fluctuate. We will follow up renal panel. We will con tinue current treatment plans, supportive care, renally dose all medications. Continue antibiotic th erapy. Defer any ANALILIA inhibitor or ARB at this time. 2. Anemia. Continue to monitor hemoglobin and hematocrit levels. 3. Mineral bone disorder. Monitor calcium and phosphorus levels. 4. Acute respiratory failure. Etiology is likely due to sepsis. The patient appears euvolemic. Co ntinue to monitor. 5. Sepsis secondary to urinary tract infection, bacteremia. Continue current antibiotic regimen. C ultures have been reviewed. 6. Elevated troponin, possible non-ST elevation myocardial infarction type 2. Continue to monitor. Follow up with Cardiology. 7. History of coronary artery disease. 8. Transaminitis. 9. Obesity. Continue dietary modification. Dictated By: JIGNA VYAS DO NR/NTS Conf#: [id number] DID#: [id number] CC: BEVERLY COX MD; STANLEY VENEGAS MD;*[facility]*
--- NOTE | 2018-07-26 12:43 | CONS ---
Assessment/Plan Assessment/Plan Hospital Course (Demo Recall) IMPRESSION: 1. Positive troponin, assess significance in the setting of renal failure-now trended negative and denies cp 2. Chest pain, somewhat poorly described and currently resolved. 3. Abnormal electrocardiogram with poor R-wave progression and lateral T-wave inversions. 4. Hypertension with currently borderline hypotension-improved with IVF hydration 5. Fevers. 6. Renal failure. 7. Leukopenia. 8. History of ICD. 9. Coagulopathy secondary to Coumadin. 10. Questionable history of cardiac arrhythmia. 11. Probable history of cardiomyopathy.-EF 30% by echo this admit 12. ELevated LFT's Recc: -Tele -Continue coreg -ARB held in the settng of renal failure per nephrology and thus will start low dose hydralazine afterload reduction at tis time -Continue asa -Follow vice president of human resources and volume status closely on current IVF hydration -follow therapeutic INR closely and continue coumadin for now. ? indication arrythmia -Continue abx's and f/u cx data -consider lexiscan to asssess significance of initailly positive troponin Consultation Date/Type/Reason Admit Date/Time July 24, 2018 at 13:02 Initial Consult Date 07/25/18 Type of Consult Cardiology Reason for Consultation CHF/.positive troponin Requesting Provider: STANLEY VENEGAS Date/Time of Note DATE: 07/26/18 TIME: 12:40 Exam/Review of Systems Vital Signs Vitals Vital Signs Date Temp Pulse Resp B/P (MAP) Pulse Ox O2 O2 Flow FiO2 Time Delivery Rate 07/26/18 97.9 70 21 110/61 98 Nasal 11:50 (77) Cannula 07/26/18 2.0 07:40 07/24/18 21 12:43 Intake and Output 07/25/18 07/25/18 07/26/18 1515:00 23:00 07:00 IntakeIntake Total 450 ml 1300 ml OutputOutput Total 1400 ml BalanceBalance -950 ml 1300 ml Exam Exam Review of Systems: CONSTITUTIONAL: No fevers, chills. PULMONARY: No sob CARDIOVASCULAR: No chest pain/palpitations GASTROINTESTINAL: No nausea/vomiting. GENITOURINARY: No hematuria/dysuria. MUSCULOSKELETAL: No myagias/arthalgias. PSYCHIATRIC: The patient denies depression. NEUROLOGIC: No weakness Constitutional: alert, oriented Psych: no complaints Head: normocephalic ENMT: mucosa pink and moist Neck: supple, jvd (9 cm water) Respiratory: diminished breath sounds (atb bases/B) Cardiovascular: regular rate and rhythm Gastrointestinal: soft, non-tender Musculoskeletal: muscle tone (normal) Extremities: edema (none) Labs Result Diagram: 07/26/18 0706 07/26/18 0706 Results 24hrs Laboratory Tests Test 07/26/18 07:06 White Blood Count 16.5 #H Red Blood Count 3.30 L Hemoglobin 10.3 L Hematocrit 32.0 L Mean Corpuscular Volume 97.0 Mean Corpuscular Hemoglobin 31.2 Mean Corpuscular Hemoglobin Concent 32.2 Red Cell Distribution Width 14.3 Platelet Count 95 L Mean Platelet Volume 10.5 H Immature Granulocytes % 3.200 H Neutrophils % Segmented Neutrophils % (Manual) 90 H Band Neutrophils % (Manual) 4 Lymphocytes % Lymphocytes % (Manual) 6 L Monocytes % Eosinophils % Basophils % Nucleated Red Blood Cells % 0.0 Immature Granulocytes # 0.530 H Neutrophils # Neutrophils # (Manual) 14.9 H Band Neutrophils # 0.6 Lymphocytes (Manual) 0.9 Lymphocytes # Monocytes # Eosinophils # Basophils # Nucleated Red Blood Cells # Platelet Estimate DECREASED Giant Platelets 1 H Sodium Level 142 Potassium Level 4.0 Chloride Level 113 H Carbon Dioxide Level 22 Anion Gap 7 Blood Urea Nitrogen 58 H Creatinine 1.96 H Est Glomerular Filtrat Rate mL/min Glucose Level 110 Calcium Level 8.2 L Phosphorus Level 2.7 Magnesium Level 2.2 Medications Medications Current Medications IV Flush (NS 3 ml) 3 ml PER PROTOCOL IV ; Start 07/24/18 at 14:00 Ondansetron HCl (Zofran Inj) 4 mg Q6H PRN IV NAUSEA/VOMITING; Start 07/24/18 at 14:00 Acetaminophen (Tylenol Tab) 650 mg Q6H PRN PO .PAIN 1-3 OR TEMP Last administered on 07/24/18at 16:12; Admin Dose 650 MG; Start 07/24/18 at 14:00 Acetaminophen/ Hydrocodone Bitart ([place] (5/325)) 1 tab Q6H PRN PO .MOD PAIN 4- 6; Start 07/24/18 at 14:00 Morphine Sulfate (morphine) 2 mg Q4H PRN IV .SEVERE PAIN 7-10; Start 07/24/18 at 14:00 Docusate Sodium (Colace) 100 mg Q12H PRN PO .CONSTIPATION Last administered on 07/26/18 08:04; Admin Dose 100 MG; Start 07/24/18 at 14:00 Zolpidem Tartrate (Ambien) 5 mg QHS PRN PO .INSOMNIA; Start 07/24/18 at 14:00 Aspirin (Halfprin) 81 mg DAILY PO Last administered on 07/26/18 08:03; Admin Dose 81 MG; Start 07/25/18 at 09:00 Carvedilol (Coreg) 12.5 mg BID PO Last administered on 07/26/18 08:03; Admin Dose 12.5 MG; Start 07/24/18 at 21:00 Losartan Potassium (Cozaar) 100 mg DAILY PO ; Start 07/25/18 at 09:00; Status Hold Warfarin Sodium (Coumadin) 2.5 mg DAILY@1700 PO Last administered on 07/25/18at 17:57; Admin Dose 2.5 MG; Start 07/25/18 at 17:00 Cholecalciferol (Vitamin D) 2,000 unit DAILY PO Last administered on 07/26/18 08:03; Admin Dose 2,000 UNIT; Start 07/25/18 at 09:00 Piperacillin Sod/ Tazobactam Sod 100 ml @ 200 mls/hr Q8H IVPB Last administered on 07/26/18 09:28; Admin Dose 200 MLS/HR; Start 07/25/18 at 02:00 YOGI COTTO July 26, 2018 12:43
--- NOTE | 2018-07-26 14:15 | CONS ---
Assessment/Plan Assessment/Plan Hospital Course (Demo Recall) ID INITIAL CONSULT NOTE CURRENT ABX: DAY # 2=>ZOSYN 07/26/18 0706 07/26/18 0706 24H INTERVAL SUMMARY * PATIENT IS A 78 Y/O WELSH SPEAKING FEMALE ALERT AND ORIENTED TO SELF, SITUATION , ABLE TO FOLLOW SIMPLE COMMANDS - FATIGUES EASILY WITH ATTEMPTS TO COMMUNICATE, (+)DYSPNEA W/SPEAKING, C/O MILD ABDOMINAL PAIN WITH DISCOMFORT WHEN WORKING WITH PTX EARLIER TODAY. * Afebrile, VSS, NAD, supplemental O2 via NC, WBC w/marked improvement and resolution of bandemia present on admission IMAGING * 07/24/18 CXR: No acute cardiopulmonary disease. Cardiomegaly with left-sided AICD in place. * 07/24/18 ABD XR: 1. Cholelithiasis.2. Mild bilateral renal atrophy with increased echogenicity consistent with chronic renal disease. * 07/25/18 2D ECHO: Conclusions: * Normal left ventricular cavity size. Moderate left ventricular systolic dysfunction. Tissue Doppler/Mitral Doppler indices are consistent with impaired relaxation (Stage I diastolic dysfunction). Mild concentric left ventricular hypertrophy. The left ventricular ejection fraction is visually estimated at 30 %. * Normal right ventricular size. Normal right ventricular systolic function. Linear artifact in right ventricle suggestive of catheter, pacer lead, or ICD lead. * There is moderate enlargement of left atrium appreciated best with JAYA of 38 cm2. * Mild mitral annular calcification. Mild mitral regurgitation. * Aortic cusps appear mildly calcified with sclerosis this is imaged only in apcial views. Trace aortic regurgitation. * Normal appearance of the tricuspid valve. The estimated Peak PA Systolic Pressure is 32 mmHg. There is mild tricuspid regurgitation. MICRO/OTHER * 07/24 BCX (+) GNR Organism 1 ESCHERICHIA COLI * 07/24/18 URINE CX (+) GNR URINE CULTURE Final Organism 1 ESCHERICHIA COLI COLONY COUNT 10,000 - 20,000 CFU/ml E COLI M.I.C. RX --------- --- AMPICILLIN <=2 S CEFAZOLIN <=4 S CEFOTAXIME S CIPROFLOXACIN <=0.25 S GENTAMICIN <=1 S LEVOFLOXACIN <=0.12 S NITROFURANTOIN <=16 S TOBRAMYCIN <=1 S TRIMETHOPRIM/SULFAMETHOXAZOLE <=20 S PHYSICAL EXAMINATION: Constitutional: Alert, responsive, generalized weakness Psych: Mood calm, cooperative Head: Normocephalic/AT ENMT: Unremarkable, w/mucosa pink and moist Neck: Aupple, (+)JVD Respiratory: (+)Dyspnea with prolonged speaking, diminished breath sounds (at bases/B) Cardiovascular: RRR Gastrointestinal: Obese, soft, non-tender Musculoskeletal: Muscle tone (normal); no obvious joint abnormalities Extremities: No edema, no cyanosis Neurological: other (No focal deficits), follows commands & moves all extremities ID INITIAL IMPRESSION 78 yo F admit with: 1. GNR Sepsis on admission as evidence by: * 07/24 BCX (+) GNR Organism 1 ESCHERICHIA COLI * Fevers present on admission * Leukocytosis (WBC 22.3 w/19% BANDEMIA) on admission * Borderline hypotension resolved w/ IVF 2. GNR E.COLI COMPLICATED UTI W/UROSEPSIS * 07/24/18 URINE CX (+) GNR URINE CULTURE Final Organism 1 ESCHERICHIA COLI COLONY COUNT 10,000 - 20,000 CFU/ml 3. s/p Acute respiratory failure=> RESOLVING 4. Chest pain, hx of CAD/ischemic CMY w/History of ICD=> Elevated troponin in setting of sepsis, possible NSTEMI type II 5. Questionable history of cardiac arrhythmia on Coumadin 6. Acute CHF = HFrEF ~30% w/mixed systolic/diastolic ==> (+) BNP @ 8390 on admission 7. Hypertension with currently borderline hypotension-improved with IVF hydration 8. Nonoliguric DIONISIO on CKD => Etiology likely multifactorial secondary to hemodynamics, possible sepsis. 9. Transaminitis -> due to sepsis, improved 10. Anemia 11. Coagulopathy secondary to Coumadin. 12. Obesity. ABX ALLERGIES: KNDA INVASIVES: PIV, Trach, Peg, FC CURRENT ABX: DAY # 2=>ZOSYN ID INITIAL RECOMMENDATIONS/PLAN: 1. Serum creatine elevated although improved --> Dr. Banks recommending Ceftriaxone 2GM IV daily to complete 14 days = less renal toxic 2. Not a good candidate for future "PO Switch to Quinolone Rx" due to CMY w/ICD 3. Noted Ceftriaxone has drug drug interaction with Coumadin while none listed with Cefepime * = Monitor INR may need Coumadin dose adjustment 2. Patient w/ excellent response so far to ABX tx * Thank you -- Report given to Dr. Banks, ID Attending . Consultation Date/Type/Reason Admit Date/Time July 24, 2018 at 13:02 Initial Consult Date 07/26/18 Type of Consult INFECTIOUS DISEASES *Thank you for the privilege of ID consult referral / Reason for Consultation ANTIBIOTIC MANAGEMENT Hx of Present Illness Patient is an 78-year-old female with a history of WI, hypertension as well as AICD placement for unclear reasons. According daughter AICD was placed after WI hence is likely secondary to CHF. Patient presents with 2 weeks of worsening shortness of breath with decreased functional status as well as chest pain with radiation to the back over the past 2 days. In ER troponin is mildly elevated, renal disease is noted and chest x-ray is normal. Patient has no complaints at this time and is currently denying chest pain. ROS Constitutional: no complaints, improved Eyes: no complaints ENT: no complaints Respiratory: shortness of breath Cardiovascular: chest pain Gastrointestinal: no complaints Genitourinary: no complaints Musculoskeletal: back pain Skin: no complaints Neurologic: no complaints Endocrine: no complaints Lymphatic: no complaints Psychological: no complaints, nl mood/affect Immunologic: no complaints PMH/Family/Social Past Medical History As per HPI Medications Current Medications Ondansetron HCl (Zofran Inj) 4 mg ER BRIDGE PRN IV NAUSEA/VOMITING; Start 07/24/18 at 13:30; Stop 07/25/18 at 13:29 Acetaminophen (Tylenol Tab) 650 mg ER BRIDGE PRN PO .MILD PAIN 1-3 OR TEMP; Start 07/24/18 at 13:30; Stop 07/25/18 at 13:29 Furosemide (Lasix) 40 mg ONCE ONCE IV ; Start 07/24/18 at 14:00; Stop 07/24/18 at 14:01; Status UNV Coded Allergies: No Known Allergy (Unverified , 07/24/18) Past Surgical History AICD placement Family History Significant Family History: no pertinent family hx Social History Alcohol Use: rarely Smoking Status: Never smoker Drug Use: none ROS 14 point ROS conducted via chart review and discussion with clinical staff -- all pertinent issues identified per HPI above Patient is non-communicate and unable to provide any ROS . Requesting Provider: STANLEY VENEGAS Date/Time of Note DATE: 07/26/18 TIME: 13:30 Exam/Review of Systems Exam Vitals Vital Signs Date Temp Pulse Resp B/P (MAP) Pulse Ox O2 O2 Flow FiO2 Time Delivery Rate 07/26/18 72 12:00 07/26/18 97.9 21 110/61 98 Nasal 11:50 (77) Cannula 07/26/18 2.0 07:40 07/24/18 21 12:43 Intake and Output 07/25/18 07/25/18 07/26/18 1515:00 23:00 07:00 IntakeIntake Total 450 ml 1300 ml OutputOutput Total 1400 ml BalanceBalance -950 ml 1300 ml Results Result Diagram: 07/26/18 0706 07/26/18 0706 Results 24hrs Laboratory Tests Test 07/26/18 07:06 White Blood Count 16.5 #H Red Blood Count 3.30 L Hemoglobin 10.3 L Hematocrit 32.0 L Mean Corpuscular Volume 97.0 Mean Corpuscular Hemoglobin 31.2 Mean Corpuscular Hemoglobin Concent 32.2 Red Cell Distribution Width 14.3 Platelet Count 95 L Mean Platelet Volume 10.5 H Immature Granulocytes % 3.200 H Neutrophils % Segmented Neutrophils % (Manual) 90 H Band Neutrophils % (Manual) 4 Lymphocytes % Lymphocytes % (Manual) 6 L Monocytes % Eosinophils % Basophils % Nucleated Red Blood Cells % 0.0 Immature Granulocytes # 0.530 H Neutrophils # Neutrophils # (Manual) 14.9 H Band Neutrophils # 0.6 Lymphocytes (Manual) 0.9 Lymphocytes # Monocytes # Eosinophils # Basophils # Nucleated Red Blood Cells # Platelet Estimate DECREASED Giant Platelets 1 H Sodium Level 142 Potassium Level 4.0 Chloride Level 113 H Carbon Dioxide Level 22 Anion Gap 7 Blood Urea Nitrogen 58 H Creatinine 1.96 H Est Glomerular Filtrat Rate mL/min Glucose Level 110 Calcium Level 8.2 L Phosphorus Level 2.7 Magnesium Level 2.2 Medications Medication Current Medications IV Flush (NS 3 ml) 3 ml PER PROTOCOL IV ; Start 07/24/18 at 14:00 Ondansetron HCl (Zofran Inj) 4 mg Q6H PRN IV NAUSEA/VOMITING; Start 07/24/18 at 14:00 Acetaminophen (Tylenol Tab) 650 mg Q6H PRN PO .PAIN 1-3 OR TEMP Last administered on 07/24/18at 16:12; Admin Dose 650 MG; Start 07/24/18 at 14:00 Acetaminophen/ Hydrocodone Bitart ([place] (5/325)) 1 tab Q6H PRN PO .MOD PAIN 4- 6; Start 07/24/18 at 14:00 Morphine Sulfate (morphine) 2 mg Q4H PRN IV .SEVERE PAIN 7-10; Start 07/24/18 at 14:00 Docusate Sodium (Colace) 100 mg Q12H PRN PO .CONSTIPATION Last administered on 07/26/18 08:04; Admin Dose 100 MG; Start 07/24/18 at 14:00 Zolpidem Tartrate (Ambien) 5 mg QHS PRN PO .INSOMNIA; Start 07/24/18 at 14:00 Aspirin (Halfprin) 81 mg DAILY PO Last administered on 07/26/18 08:03; Admin Dose 81 MG; Start 07/25/18 at 09:00 Carvedilol (Coreg) 12.5 mg BID PO Last administered on 07/26/18 08:03; Admin Dose 12.5 MG; Start 07/24/18 at 21:00 Losartan Potassium (Cozaar) 100 mg DAILY PO ; Start 07/25/18 at 09:00; Status Hold Warfarin Sodium (Coumadin) 2.5 mg DAILY@1700 PO Last administered on 07/25/18 17:57; Admin Dose 2.5 MG; Start 07/25/18 at 17:00 Cholecalciferol (Vitamin D) 2,000 unit DAILY PO Last administered on 07/26/18 08:03; Admin Dose 2,000 UNIT; Start 07/25/18 at 09:00 Piperacillin Sod/ Tazobactam Sod 100 ml @ 200 mls/hr Q8H IVPB Last administered on 07/26/18 09:28; Admin Dose 200 MLS/HR; Start 07/25/18 at 02:00 KAILA MESSER NP July 26, 2018 13:40
[2018-07-26] MEDS ORDERED: CEFEPIME 1GM/50 ML (PMX) 50 ML IVPB SCH (14:30)
[2018-07-26] MEDS: CEFTRIAXONE 2 GM/50 ML (PMX) 50 ML IVPB SCH (15:30)
[2018-07-26] MEDS: WARFARIN 2.5 MG TAB PO SCH (17:14)
--- NOTE | 2018-07-26 17:31 | PN ---
Date/Time of Note Date/Time of Note DATE: 07/26/18 TIME: 17:28 Assessment/Plan VTE Prophylaxis Risk score (from Nsg)>0 risk: 6 SCD applied (from Nsg): Yes Pharmacological prophylaxis: heparin Lines/Catheters IV Catheter Type (from Nrsg): Saline Lock Urinary Cath still in place: No Assessment/Plan Hospital Course 1. Chest pain with radiation to the back positive secondary to muscular cramping from sepsis Patient with mild elevation of troponin in setting of renal failure Troponins have trended down and chest pain has resolved Aspirin and statin Cardiology consultation appreciated, medical management at this time Follow-up echo Patient is currently denying any chest pain A1c at 6.1 and LDL at 67 2. Sepsis with bacteremia secondary to UTI Blood and urine cultures are positive for gram-negative rods Zosyn IV IV fluids Follow-up culture specifics ID consultation obtained 3. Dyspnea likely secondary to generalized weakness from sepsis Chest x-ray with no evidence of failure or pneumonia, lung sounds are normal BNP is slightly elevated but in the setting of renal failure DC Lasix IV Supplement oxygen as needed 3. History of FL with subsequent AICD placement Continue home cardiac meds Cardiology consultation appreciated 2D echo 4. Bicytopenia with leukopenia and thrombocytopenia Patient now with leukocytosis secondary to sepsis 5. Transaminitis likely secondary to sepsis LFTs are improving Ultrasound the abdomen shows no evidence of cirrhosis Hepatitis viral panel is negative Continue IV fluids 6. Acute versus chronic kidney disease Etiology likely secondary to sepsis hemodynamics, Baseline renal function is unknown Nephrology consultation appreciated Renal ultrasound shows chronic renal disease Continue IV fluids Have discontinued Lasix Hold losartan 7. Obesity Lifestyle changes 8. Hypertension Continue Coreg Hold losartan secondary to likely acute kidney injury 9. Questionable history of cardiac arrhythmia On Coumadin Prophylaxis: On Coumadin DC planning: Continue IV antibiotics, follow-up on ID recommendations Result Diagram: 07/26/18 0706 07/26/18 0706 Results 24hrs Laboratory Tests Test 07/26/18 07:06 White Blood Count 16.5 #H Red Blood Count 3.30 L Hemoglobin 10.3 L Hematocrit 32.0 L Mean Corpuscular Volume 97.0 Mean Corpuscular Hemoglobin 31.2 Mean Corpuscular Hemoglobin Concent 32.2 Red Cell Distribution Width 14.3 Platelet Count 95 L Mean Platelet Volume 10.5 H Immature Granulocytes % 3.200 H Neutrophils % Segmented Neutrophils % (Manual) 90 H Band Neutrophils % (Manual) 4 Lymphocytes % Lymphocytes % (Manual) 6 L Monocytes % Eosinophils % Basophils % Nucleated Red Blood Cells % 0.0 Immature Granulocytes # 0.530 H Neutrophils # Neutrophils # (Manual) 14.9 H Band Neutrophils # 0.6 Lymphocytes (Manual) 0.9 Lymphocytes # Monocytes # Eosinophils # Basophils # Nucleated Red Blood Cells # Platelet Estimate DECREASED Giant Platelets 1 H Sodium Level 142 Potassium Level 4.0 Chloride Level 113 H Carbon Dioxide Level 22 Anion Gap 7 Blood Urea Nitrogen 58 H Creatinine 1.96 H Est Glomerular Filtrat Rate mL/min Glucose Level 110 Calcium Level 8.2 L Phosphorus Level 2.7 Magnesium Level 2.2 Subjective 24 Hr Interval Summary Free Text/Dictation Resting comfortably Exam/Review of Systems Exam Vitals Vital Signs Date Temp Pulse Resp B/P (MAP) Pulse Ox O2 O2 Flow FiO2 Time Delivery Rate 07/26/18 70 16:00 07/26/18 98.1 20 147/66 100 Nasal 15:45 (93) Cannula 07/26/18 2.0 07:40 07/24/18 21 12:43 Intake and Output 07/25/18 07/25/18 07/26/18 1515:00 23:00 07:00 IntakeIntake Total 450 ml 1300 ml OutputOutput Total 1400 ml BalanceBalance -950 ml 1300 ml Constitutional: alert, oriented, well developed Psych: no complaints, nl mood/affect Head: normocephalic, atraumatic Eyes: nl conjunctiva, EOMI, nl lids, nl sclera, PERRL ENMT: nl external ears & nose, nl lips & teeth, nl nasal mucosa & septum Neck: supple, non-tender Respiratory: clear to auscultation, normal air movement Cardiovascular: regular rate and rhythm, nl pulses Gastrointestinal: soft, nl liver, spleen, non-tender Musculoskeletal: nl extremities to inspection, nl gait and stance Extremities: normal pulses Neurological: BENEFIT SPECIALIST II-XII intact, nl mental status, nl speech, nl strength Skin: nl turgor; No rash or lesions Lymph: nl lymph nodes Results Results 24hrs Laboratory Tests Test 07/26/18 07:06 White Blood Count 16.5 #H Red Blood Count 3.30 L Hemoglobin 10.3 L Hematocrit 32.0 L Mean Corpuscular Volume 97.0 Mean Corpuscular Hemoglobin 31.2 Mean Corpuscular Hemoglobin Concent 32.2 Red Cell Distribution Width 14.3 Platelet Count 95 L Mean Platelet Volume 10.5 H Immature Granulocytes % 3.200 H Neutrophils % Segmented Neutrophils % (Manual) 90 H Band Neutrophils % (Manual) 4 Lymphocytes % Lymphocytes % (Manual) 6 L Monocytes % Eosinophils % Basophils % Nucleated Red Blood Cells % 0.0 Immature Granulocytes # 0.530 H Neutrophils # Neutrophils # (Manual) 14.9 H Band Neutrophils # 0.6 Lymphocytes (Manual) 0.9 Lymphocytes # Monocytes # Eosinophils # Basophils # Nucleated Red Blood Cells # Platelet Estimate DECREASED Giant Platelets 1 H Sodium Level 142 Potassium Level 4.0 Chloride Level 113 H Carbon Dioxide Level 22 Anion Gap 7 Blood Urea Nitrogen 58 H Creatinine 1.96 H Est Glomerular Filtrat Rate mL/min Glucose Level 110 Calcium Level 8.2 L Phosphorus Level 2.7 Magnesium Level 2.2 Medications Medication Current Medications IV Flush (NS 3 ml) 3 ml PER PROTOCOL IV ; Start 07/24/18 at 14:00 Ondansetron HCl (Zofran Inj) 4 mg Q6H PRN IV NAUSEA/VOMITING; Start 07/24/18 at 14:00 Acetaminophen (Tylenol Tab) 650 mg Q6H PRN PO .PAIN 1-3 OR TEMP Last administered on 07/24/18at 16:12; Admin Dose 650 MG; Start 07/24/18 at 14:00 Acetaminophen/ Hydrocodone Bitart ([place] (5/325)) 1 tab Q6H PRN PO .MOD PAIN 4- 6; Start 07/24/18 at 14:00 Morphine Sulfate (morphine) 2 mg Q4H PRN IV .SEVERE PAIN 7-10; Start 07/24/18 at 14:00 Docusate Sodium (Colace) 100 mg Q12H PRN PO .CONSTIPATION Last administered on 07/26/18at 08:04; Admin Dose 100 MG; Start 07/24/18 at 14:00 Zolpidem Tartrate (Ambien) 5 mg QHS PRN PO .INSOMNIA; Start 07/24/18 at 14:00 Aspirin (Halfprin) 81 mg DAILY PO Last administered on 07/26/18at 08:03; Admin Dose 81 MG; Start 07/25/18 at 09:00 Carvedilol (Coreg) 12.5 mg BID PO Last administered on 07/26/18at 08:03; Admin Dose 12.5 MG; Start 07/24/18 at 21:00 Losartan Potassium (Cozaar) 100 mg DAILY PO ; Start 07/25/18 at 09:00; Status Hold Warfarin Sodium (Coumadin) 2.5 mg DAILY@1700 PO Last administered on 07/26/18at 17:14; Admin Dose 2.5 MG; Start 07/25/18 at 17:00 Cholecalciferol (Vitamin D) 2,000 unit DAILY PO Last administered on 07/26/18at 08:03; Admin Dose 2,000 UNIT; Start 07/25/18 at 09:00 Ceftriaxone Sodium 50 ml @ 100 mls/hr Q24H IVPB Last administered on 07/26/18at 15:30; Admin Dose 100 MLS/HR; Start 07/26/18 at 15:30; Stop 08/07/18 at 15:29 ADEBAYO TAPIA MD July 26, 2018 17:30
[2018-07-26] MEDS ORDERED: FUROSEMIDE 20 MG INJ IV ONE (23:00)
[2018-07-26] MEDS ORDERED: ALBUTEROL/IPRATROPIUM (NEB) 3 ML AMP HHN SCH (23:00)
[2018-07-26] MEDS ORDERED: ALBUTEROL/IPRATROPIUM (NEB) 3 ML AMP HHN PRN (23:00)
[2018-07-27] VITALS (14 sets, daily range): BP systolic 116–171; BP diastolic 58–83; PULSE 69–81; RESP 19–24
[2018-07-27] MEDS: ALBUTEROL/IPRATROPIUM (NEB) 3 ML AMP HHN SCH ×6 (00:45→20:37)
--- NOTE | 2018-07-27 02:37 | CONS ---
DATE OF ADMISSION: 07/24/2018 DATE OF CONSULTATION: 07/27/2018 Infectious disease consultation for Dr. Bernardo Gonzalez. HISTORY OF PRESENT ILLNESS: The patient is an 78-year-old female that was admitted with a chief complaint of pain in chest and radiating to the back, several days of weakness, shortness of breath and paroxysmal nocturnal dyspnea. Upon arrival in the emergency room, the patient's white count was 2600 with 24 bands. This was repeated and rapidly martín to 22,300 with 19 bands. Hemoglobin originally was 12.7 grams and after IV fluids was 10.3 grams, pulse was initially 110 and then went to 95 after rehydration. The urine culture grew 10,000 to 20,000 E. coli sensitive to all antibiotics tested. Blood culture was positive for E. coli, which was resistant to ampicillin, cefazolin and sulfa trimethoprim. Chest x-ray revealed a slightly enlarged heart and a left-sided cardiac pacemaker, AICD. The patient also had an ultrasound of the abdomen, which revealed cholelithiasis and atrophic kidneys. Bilaterally, no obstruction. Laboratory also revealed elevated liver function studies of transaminitis. PHYSICAL EXAMINATION: GENERAL: Revealed a well-developed, female. VITAL SIGNS: Temperature is 99.4, pulse 79, respirations 30, blood pressure 146/78, O2 saturation 97% on nasal cannula, FIO2 of 40%. HEENT: Obese. No acute distress. NECK: There is no jugular venous distention. Supple. CHEST: Clear bilaterally. HEART: Regular but rapid. No gallops. ABDOMEN: Soft, negative. No tenderness, no rebound. Bowel sounds present. INITIAL IMPRESSION: 1. Systemic inflammatory response. 2. E. coli sepsis. 3. Demand a non-ST segment myocardial infarction. 4. Cholelithiasis. 5. Prediabetes. 6. Dehydration. 7. Pacer Automatic Implantable Cardioverter Defibrillator. RECOMMENDATIONS: I would suggest changing antibiotics to ceftriaxone 1 gram IV daily. Discontinue the other ones. Consider the possibility of passing a gallstone because of the transaminitis and the pain in the back. Thank you for referring this interesting patient to Dr. Gonzalez. Dictated By: Eva ALEJO MD EC/NTS Conf#: [id number] DID#: [id number] CC: ADEBAYO TAPIA MD; STANLEY VENEGAS MD;*End* [facility]
[2018-07-27] MEDS: CHOLECALCIFEROL 2,000 UNIT CAP PO SCH (08:25)
[2018-07-27] MEDS: ASPIRIN (EC) 81 MG TAB PO SCH (08:26)
--- NOTE | 2018-07-27 09:37 | PN ---
DATE: 07/27/2018 SUBJECTIVE: Overnight, patient was short of breath, was placed on BiPAP. Was given a course of diur etics with improvement. No other events noted. The patient is scheduled for a Lexiscan this morning . OBJECTIVE: VITAL SIGNS: Blood pressure is 135/69, respirations 20, pulse 69, temperature 98.5. HEENT: Head is normocephalic. NECK: Supple. HEART: Regular rate. LUNGS: Show diminished breath sounds at the base. ABDOMEN: Soft, nontender to palpation without rebound or guarding. EXTREMITIES: Negative for clubbing, cyanosis, no edema. DERMATOLOGIC: No rashes. MUSCULOSKELETAL: No joint effusion. NEUROLOGIC: No change in exam. MEDICATIONS: Reviewed. LABORATORY DATA: Has been reviewed. ASSESSMENT AND PLAN: 1. Nonoliguric acute kidney injury on top of chronic kidney disease with unknown baseline creatinine . Etiology of acute kidney injury is likely secondary to hemodynamics, possible sepsis. The patient 's renal function has been slowly improving. Continue current treatment plan, supportive care, renal ly dose all meds. Defer any ANALILIA inhibitor ARB at this time. 2. Anemia. Monitor hemoglobin and hematocrit levels. 3. Mineral bone disorder. Monitor calcium and phosphorus levels. 4. Acute hypoxemic respiratory failure. Etiology is possibly secondary to volume overload. The pat ient is status post Lasix with clinical improvement. Continue to monitor. 5. Sepsis secondary to urinary tract infection, bacteremia. Continue current antibiotic regimen. 6. Elevated troponin, possible non-ST elevation myocardial infarction. The patient is pending a Vu iscan. Follow up with cardiology. 7. History of coronary artery disease. 8. Transaminitis. Continue to monitor. 9. Obesity. Continue dietary modification. Dictated By: JIGNA VYAS DO NR/NTS Conf#: [id number] DID#: [id number] CC: STANLEY VENEGAS MD;*EndCC*
--- NOTE | 2018-07-27 09:41 | CONS ---
Consult Date/Type/Reason Admit Date/Time July 24, 2018 at 13:02 Initial Consult Date Requesting Provider: STANLEY VENEGAS Date/Time of Note DATE: 07/27/18 TIME: 09:39 Subjective NO acute events -pt pain free now - stress test planed today. ROS: No fever, no chills, no nausea, no vomiting, no diarrhea/constipation No recent weight changes No chest pain, no PND, no orthopnea - chronic SOB No dizziness, blurred vision No thirst, no heat or cold intolerance Objective Vitals Vital Signs Date Temp Pulse Resp B/P (MAP) Pulse Ox O2 O2 Flow FiO2 Time Delivery Rate 07/27/18 Nasal 4.0 07:32 Cannula 07/27/18 98.5 69 20 135/69 99 07:05 (91) 07/27/18 30 05:09 Intake and Output 07/26/18 07/26/18 07/27/18 1515:00 23:00 07:00 IntakeIntake Total 100 ml 1250 ml 400 ml BalanceBalance 100 ml 1250 ml 400 ml Exam General: WN/WD/NAD, AOx 3 Hebrew HEENT: Unicetric/atraumatic/EOMI ( follow commands) NECK: JVD elevated, no thyromegaly Lymph: no lymphadenopathy HEART: regular with no S3, II/ systolic murmur at apex, PMI L LUNGS: Coarse sounds ABD: soft, NT, ND, +BS : Intact Neuro: non focal SKIN: chronic changes EXT: trace edema Results/Medications Result Diagram: 07/26/18 0706 07/27/18 0738 Results 24 hrs Laboratory Tests Test 07/26/18 22:38 07/27/18 00:56 07/27/18 07:38 Blood Gas Specimen Source Blood arterial Arterial Blood Date Drawn 07/26/2018 11:00:08 PM Arterial Blood pH 7.353 (Temp corrected) Arterial Blood pCO2 37.5 (Temp correct) Arterial Blood pO2 110.2 H (Temp corrected) Arterial Blood HCO3 20.4 L Arterial Blood Base Excess -4.6 L Arterial Blood 98.0 Oxygen Saturation Sammy Test ACCEPTAB Arterial Blood Gas Right Radial Puncture Site Arterial 0.3 Blood Carboxyhemoglobin Arterial Blood 0.3 Methemoglobin Blood Gas A-a O2 168.0 H Differential Oxyhemoglobin Percent 97.4 Blood Gas Temperature 37.0 Blood Gas Modality MASK - SIMPLE FiO2 45.0 Blood Gas Notified Whom UP Blood Gas Notified Time 07/26/2018 11:11:02 PM Creatine Kinase 69 # 48 Creatine Kinase Index 1.3 1.2 Creatinine Kinase MB (Mass) 0.90 0.59 Troponin I 0.050 0.043 Sodium Level 142 Potassium Level 4.0 Chloride Level 110 Carbon Dioxide Level 24 Anion Gap 8 Blood Urea Nitrogen 47 #H Creatinine 1.54 H Est Glomerular Filtrat Rate mL/min Glucose Level 127 Calcium Level 8.7 Phosphorus Level 3.4 Magnesium Level 2.1 Home Meds Reported Medications Aspirin (Low Dose Aspirin) 81 Mg Tablet.dr, 81 MG PO DAILY, #30 TAB 07/24/18 Ergocalciferol (Vitamin D2) (VITAMIN D2) 2,000 Unit Tablet, 2000 UNIT PO DAILY, TAB 07/24/18 Carvedilol* (Carvedilol*) 12.5 Mg Tablet, 12.5 MG PO BID, #60 TAB 07/24/18 Furosemide* (Furosemide*) 40 Mg Tablet, 40 MG PO DAILY, TAB 07/24/18 Warfarin Sodium* (Coumadin*) 2.5 Mg Tablet, 2.5 MG PO DAILY, TAB 07/24/18 Losartan Potassium* (Losartan Potassium*) 100 Mg Tablet, 100 MG PO DAILY, TAB 07/24/18 Medications Current Medications IV Flush (NS 3 ml) 3 ml PER PROTOCOL IV ; Start 07/24/18 at 14:00 Ondansetron HCl (Zofran Inj) 4 mg Q6H PRN IV NAUSEA/VOMITING; Start 07/24/18 at 14:00 Acetaminophen (Tylenol Tab) 650 mg Q6H PRN PO .PAIN 1-3 OR TEMP Last admin istered on 07/24/18at 16:12; Admin Dose 650 MG; Start 07/24/18 at 14:00 Acetaminophen/ Hydrocodone Bitart ([place] (5/325)) 1 tab Q6H PRN PO .MOD PAIN 4- 6; Start 07/24/18 at 14:00 Morphine Sulfate (morphine) 2 mg Q4H PRN IV .SEVERE PAIN 7-10; Start 07/24/18 at 14:00 Docusate Sodium (Colace) 100 mg Q12H PRN PO .CONSTIPATION Last administered on 07/26/18at 08:04; Admin Dose 100 MG; Start 07/24/18 at 14:00 Zolpidem Tartrate (Ambien) 5 mg QHS PRN PO .INSOMNIA Last administered on 07/26/18at 22:07; Admin Dose 5 MG; Start 07/24/18 at 14:00 Aspirin (Halfprin) 81 mg DAILY PO Last administered on 07/27/18 08:26; Admin Dose 81 MG; Start 07/25/18 at 09:00 Carvedilol (Coreg) 12.5 mg BID PO Last administered on 07/27/18 08:26; Admin Dose 12.5 MG; Start 07/24/18 at 21:00 Losartan Potassium (Cozaar) 100 mg DAILY PO ; Start 07/25/18 at 09:00; Status Hold Warfarin Sodium (Coumadin) 2.5 mg DAILY@1700 PO Last administered on 07/26/18at 17:14; Admin Dose 2.5 MG; Start 07/25/18 at 17:00 Cholecalciferol (Vitamin D) 2,000 unit DAILY PO Last administered on 07/27/18at 08:25; Admin Dose 2,000 UNIT; Start 07/25/18 at 09:00 Ceftriaxone Sodium 50 ml @ 100 mls/hr Q24H IVPB Last administered on 07/26/18at 15:30; Admin Dose 100 MLS/HR; Start 07/26/18 at 15:30; Stop 08/07/18 at 15:29 Albuterol/ Ipratropium (Duoneb) 3 ml Q4H RESP THERAPY HHN Last administered on 07/27/18at 05:09; Admin Dose 3 ML; Start 07/27/18 at 01:00 Assessment/Plan Hospital Course (Demo Recall) 1. Positive troponin, assess significance in the setting of renal failure-now trended negative and denies cp - no active CP now - stress test planned toady 2. Chest pain, somewhat poorly described and currently resolved- await test results 3. Abnormal electrocardiogram with poor R-wave progression and lateral T-wave inversions. 4. Hypertension with currently borderline hypotension-improved with IVF hydration - BP in good range curerntly. 5. Fevers- no bnew episodes now. 6. Renal failure. 7. Leukopenia. 8. History of ICD- stable on tele now. 9. Coagulopathy secondary to Coumadin. 10. Questionable history of cardiac arrhythmia. 11. Probable history of cardiomyopathy.-EF 30% by echo this admit - with ICD. 12. ELevated LFT's NELL IRENE MD July 27, 2018 09:41
[2018-07-27] MEDS ORDERED: REGADENOSON 0.4 MG/5 ML SYG ONE (11:00)
--- NOTE | 2018-07-27 15:03 | CONS ---
Assessment/Plan Assessment/Plan Hospital Course (Demo Recall) No acute events patient is alert looks comfortable afebrile no labs urine and blood culture since admission grew E. coli susceptible to salvatore quinolones Antimicrobials: Rocephin Physical examination: This is an obese well-developed elderly woman who is alert in no distress. Head atraumatic normocephalic neck is supple chest rise symmetrical breath sounds clear heart S1-S2 abdomen soft bowel sounds present extremities without cyanosis Assessment: 1. Sepsis, present on admission 2. E. coli UTI with bacteremia 3. Non-ST elevation AL 4. History of permanent pacemaker Plan: Patient remains stable scheduled for Lexiscan today, continue present care and antibiotics, follow labs in a.m., repeat blood cultures. Anticipate treating her with 2 weeks oral Levaquin Consultation Date/Type/Reason Admit Date/Time July 24, 2018 at 13:02 Initial Consult Date Type of Consult id Requesting Provider: STANLEY VENEGAS Date/Time of Note DATE: 07/27/18 TIME: 15:03 Exam/Review of Systems Exam Vitals Vital Signs Date Temp Pulse Resp B/P (MAP) Pulse Ox O2 O2 Flow FiO2 Time Delivery Rate 07/27/18 70 26 97 Nasal 1.0 13:19 Cannula 07/27/18 97.8 144/69 11:45 (94) 07/27/18 30 05:09 Intake and Output 07/26/18 07/26/18 07/27/18 1515:00 23:00 07:00 IntakeIntake Total 100 ml 1250 ml 400 ml BalanceBalance 100 ml 1250 ml 400 ml Results Result Diagram: 07/26/18 0706 07/27/18 0738 Results 24hrs Laboratory Tests Test 07/26/18 22:38 07/27/18 00:56 07/27/18 07:38 Blood Gas Specimen Source Blood arterial Arterial Blood Date Drawn 07/26/2018 11:00:08 PM Arterial Blood pH 7.353 (Temp corrected) Arterial Blood pCO2 37.5 (Temp correct) Arterial Blood pO2 110.2 H (Temp corrected) Arterial Blood HCO3 20.4 L Arterial Blood Base Excess -4.6 L Arterial Blood 98.0 Oxygen Saturation Sammy Test ACCEPTAB Arterial Blood Gas Right Radial Puncture Site Arterial 0.3 Blood Carboxyhemoglobin Arterial Blood 0.3 Methemoglobin Blood Gas A-a O2 168.0 H Differential Oxyhemoglobin Percent 97.4 Blood Gas Temperature 37.0 Blood Gas Modality MASK - SIMPLE FiO2 45.0 Blood Gas Notified Whom UP Blood Gas Notified Time 07/26/2018 11:11:02 PM Creatine Kinase 69 # 48 Creatine Kinase Index 1.3 1.2 Creatinine Kinase MB (Mass) 0.90 0.59 Troponin I 0.050 0.043 Sodium Level 142 Potassium Level 4.0 Chloride Level 110 Carbon Dioxide Level 24 Anion Gap 8 Blood Urea Nitrogen 47 #H Creatinine 1.54 H Est Glomerular Filtrat Rate mL/min Glucose Level 127 Calcium Level 8.7 Phosphorus Level 3.4 Magnesium Level 2.1 Medications Medication Current Medications IV Flush (NS 3 ml) 3 ml PER PROTOCOL IV ; Start 07/24/18 at 14:00 Ondansetron HCl (Zofran Inj) 4 mg Q6H PRN IV NAUSEA/VOMITING; Start 07/24/18 at 14:00 Acetaminophen (Tylenol Tab) 650 mg Q6H PRN PO .PAIN 1-3 OR TEMP Last administered on 07/24/18at 16:12; Admin Dose 650 MG; Start 07/24/18 at 14:00 Acetaminophen/ Hydrocodone Bitart ([place] (5/325)) 1 tab Q6H PRN PO .MOD PAIN 4- 6; Start 07/24/18 at 14:00 Morphine Sulfate (morphine) 2 mg Q4H PRN IV .SEVERE PAIN 7-10; Start 07/24/18 at 14:00 Docusate Sodium (Colace) 100 mg Q12H PRN PO .CONSTIPATION Last administered on 07/26/18 08:04; Admin Dose 100 MG; Start 07/24/18 at 14:00 Zolpidem Tartrate (Ambien) 5 mg QHS PRN PO .INSOMNIA Last administered on 07/26/18 22:07; Admin Dose 5 MG; Start 07/24/18 at 14:00 Aspirin (Halfprin) 81 mg DAILY PO Last administered on 07/27/18 08:26; Admin Dose 81 MG; Start 07/25/18 at 09:00 Carvedilol (Coreg) 12.5 mg BID PO Last administered on 07/27/18 08:26; Admin Dose 12.5 MG; Start 07/24/18 at 21:00 Losartan Potassium (Cozaar) 100 mg DAILY PO ; Start 07/25/18 at 09:00; Status Hold Warfarin Sodium (Coumadin) 2.5 mg DAILY@1700 PO Last administered on 07/26/18at 17:14; Admin Dose 2.5 MG; Start 07/25/18 at 17:00 Cholecalciferol (Vitamin D) 2,000 unit DAILY PO Last administered on 07/27/18 08:25; Admin Dose 2,000 UNIT; Start 07/25/18 at 09:00 Ceftriaxone Sodium 50 ml @ 100 mls/hr Q24H IVPB Last administered on 07/26/18at 15:30; Admin Dose 100 MLS/HR; Start 07/26/18 at 15:30; Stop 08/07/18 at 15:29 Albuterol/ Ipratropium (Duoneb) 3 ml Q4H RESP THERAPY HHN Last administered on 07/27/18at 13:19; Admin Dose 3 ML; Start 07/27/18 at 01:00 ED VIDAL NP July 27, 2018 15:03
--- NOTE | 2018-07-27 16:11 | PN ---
Date/Time of Note Date/Time of Note DATE: 07/27/18 TIME: 16:09 Assessment/Plan VTE Prophylaxis Risk score (from Nsg)>0 risk: 7 SCD applied (from Nsg): Yes Pharmacological prophylaxis: heparin Lines/Catheters IV Catheter Type (from Nrsg): Saline Lock Urinary Cath still in place: No Assessment/Plan Hospital Course 1. Chest pain with radiation to the back positive secondary to muscular cramping from sepsis Patient with mild elevation of troponin in setting of renal failure Troponins have trended down and chest pain has resolved Aspirin and statin Cardiology consultation appreciated, medical management at this time Follow-up echo Patient is currently denying any chest pain A1c at 6.1 and LDL at 67 2. Sepsis with bacteremia secondary to UTI Blood and urine cultures are positive for gram-negative rods Abx per ID 3. Dyspnea likely secondary to generalized weakness from sepsis - Resolved 3. History of PR with subsequent AICD placement Continue home cardiac meds Cardiology consultation appreciated 2D echo 4. Bicytopenia with leukopenia and thrombocytopenia Patient now with leukocytosis secondary to sepsis 5. Transaminitis likely secondary to sepsis LFTs are improving Ultrasound the abdomen shows no evidence of cirrhosis Hepatitis viral panel is negative Continue IV fluids 6. Acute versus chronic kidney disease Etiology likely secondary to sepsis hemodynamics, Baseline renal function is unknown Nephrology consultation appreciated Renal ultrasound shows chronic renal disease Continue IV fluids Have discontinued Lasix Hold losartan 7. Obesity Lifestyle changes 8. Hypertension Continue Coreg Hold losartan secondary to likely acute kidney injury 9. Questionable history of cardiac arrhythmia On Coumadin Prophylaxis: On Coumadin DC planning: Home on PO abx perhaps tomorrow Result Diagram: 07/26/18 0706 07/27/18 0738 Results 24hrs Laboratory Tests Test 07/26/18 22:38 07/27/18 00:56 07/27/18 07:38 Blood Gas Specimen Source Blood arterial Arterial Blood Date Drawn 07/26/2018 11:00:08 PM Arterial Blood pH 7.353 (Temp corrected) Arterial Blood pCO2 37.5 (Temp correct) Arterial Blood pO2 110.2 H (Temp corrected) Arterial Blood HCO3 20.4 L Arterial Blood Base Excess -4.6 L Arterial Blood 98.0 Oxygen Saturation Sammy Test ACCEPTAB Arterial Blood Gas Right Radial Puncture Site Arterial 0.3 Blood Carboxyhemoglobin Arterial Blood 0.3 Methemoglobin Blood Gas A-a O2 168.0 H Differential Oxyhemoglobin Percent 97.4 Blood Gas Temperature 37.0 Blood Gas Modality MASK - SIMPLE FiO2 45.0 Blood Gas Notified Whom UP Blood Gas Notified Time 07/26/2018 11:11:02 PM Creatine Kinase 69 # 48 Creatine Kinase Index 1.3 1.2 Creatinine Kinase MB (Mass) 0.90 0.59 Troponin I 0.050 0.043 Sodium Level 142 Potassium Level 4.0 Chloride Level 110 Carbon Dioxide Level 24 Anion Gap 8 Blood Urea Nitrogen 47 #H Creatinine 1.54 H Est Glomerular Filtrat Rate mL/min Glucose Level 127 Calcium Level 8.7 Phosphorus Level 3.4 Magnesium Level 2.1 Subjective 24 Hr Interval Summary Free Text/Dictation Emotional about living sitiutation, kids in [facility] Feels well physically Exam/Review of Systems Exam Vitals Vital Signs Date Temp Pulse Resp B/P (MAP) Pulse Ox O2 O2 Flow FiO2 Time Delivery Rate 07/27/18 97.5 70 20 134/63 97 Nasal 15:20 (86) Cannula 07/27/18 1.0 13:19 07/27/18 30 05:09 Intake and Output 07/26/18 07/26/18 07/27/18 1515:00 23:00 07:00 IntakeIntake Total 100 ml 1250 ml 400 ml BalanceBalance 100 ml 1250 ml 400 ml Constitutional: alert, oriented, well developed Psych: no complaints, nl mood/affect Head: normocephalic, atraumatic Eyes: nl conjunctiva, EOMI, nl lids, nl sclera, PERRL ENMT: nl external ears & nose, nl lips & teeth, nl nasal mucosa & septum Neck: supple, non-tender Respiratory: clear to auscultation, normal air movement Cardiovascular: regular rate and rhythm, nl pulses Gastrointestinal: soft, nl liver, spleen, non-tender Musculoskeletal: nl extremities to inspection, nl gait and stance Extremities: normal pulses 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, nl mental status, nl speech, nl strength Skin: nl turgor; No rash or lesions Lymph: nl lymph nodes Results Results 24hrs Laboratory Tests Test 07/26/18 22:38 07/27/18 00:56 07/27/18 07:38 Blood Gas Specimen Source Blood arterial Arterial Blood Date Drawn 07/26/2018 11:00:08 PM Arterial Blood pH 7.353 (Temp corrected) Arterial Blood pCO2 37.5 (Temp correct) Arterial Blood pO2 110.2 H (Temp corrected) Arterial Blood HCO3 20.4 L Arterial Blood Base Excess -4.6 L Arterial Blood 98.0 Oxygen Saturation Sammy Test ACCEPTAB Arterial Blood Gas Right Radial Puncture Site Arterial 0.3 Blood Carboxyhemoglobin Arterial Blood 0.3 Methemoglobin Blood Gas A-a O2 168.0 H Differential Oxyhemoglobin Percent 97.4 Blood Gas Temperature 37.0 Blood Gas Modality MASK - SIMPLE FiO2 45.0 Blood Gas Notified Whom UP Blood Gas Notified Time 07/26/2018 11:11:02 PM Creatine Kinase 69 # 48 Creatine Kinase Index 1.3 1.2 Creatinine Kinase MB (Mass) 0.90 0.59 Troponin I 0.050 0.043 Sodium Level 142 Potassium Level 4.0 Chloride Level 110 Carbon Dioxide Level 24 Anion Gap 8 Blood Urea Nitrogen 47 #H Creatinine 1.54 H Est Glomerular Filtrat Rate mL/min Glucose Level 127 Calcium Level 8.7 Phosphorus Level 3.4 Magnesium Level 2.1 Medications Medication Current Medications IV Flush (NS 3 ml) 3 ml PER PROTOCOL IV ; Start 07/24/18 at 14:00 Ondansetron HCl (Zofran Inj) 4 mg Q6H PRN IV NAUSEA/VOMITING; Start 07/24/18 at 14:00 Acetaminophen (Tylenol Tab) 650 mg Q6H PRN PO .PAIN 1-3 OR TEMP Last administered on 07/24/18at 16:12; Admin Dose 650 MG; Start 07/24/18 at 14:00 Acetaminophen/ Hydrocodone Bitart ([place] (5/325)) 1 tab Q6H PRN PO .MOD PAIN 4- 6; Start 07/24/18 at 14:00 Morphine Sulfate (morphine) 2 mg Q4H PRN IV .SEVERE PAIN 7-10; Start 07/24/18 at 14:00 Docusate Sodium (Colace) 100 mg Q12H PRN PO .CONSTIPATION Last administered on 07/26/18at 08:04; Admin Dose 100 MG; Start 07/24/18 at 14:00 Zolpidem Tartrate (Ambien) 5 mg QHS PRN PO .INSOMNIA Last administered on 07/26/18at 22:07; Admin Dose 5 MG; Start 07/24/18 at 14:00 Aspirin (Halfprin) 81 mg DAILY PO Last administered on 07/27/18 08:26; Admin Dose 81 MG; Start 07/25/18 at 09:00 Carvedilol (Coreg) 12.5 mg BID PO Last administered on 07/27/18 08:26; Admin Dose 12.5 MG; Start 07/24/18 at 21:00 Losartan Potassium (Cozaar) 100 mg DAILY PO ; Start 07/25/18 at 09:00; Status Hold Warfarin Sodium (Coumadin) 2.5 mg DAILY@1700 PO Last administered on 07/26/18 17:14; Admin Dose 2.5 MG; Start 07/25/18 at 17:00 Cholecalciferol (Vitamin D) 2,000 unit DAILY PO Last administered on 07/27/18 08:25; Admin Dose 2,000 UNIT; Start 07/25/18 at 09:00 Ceftriaxone Sodium 50 ml @ 100 mls/hr Q24H IVPB Last administered on 07/26/18 15:30; Admin Dose 100 MLS/HR; Start 07/26/18 at 15:30; Stop 08/07/18 at 15:29 Albuterol/ Ipratropium (Duoneb) 3 ml Q4H RESP THERAPY HHN Last administered on 07/27/18 13:19; Admin Dose 3 ML; Start 07/27/18 at 01:00 ADEBAYO TAPIA MD July 27, 2018 16:11
[2018-07-27] MEDS: WARFARIN 2.5 MG TAB PO SCH (16:23)
[2018-07-27] MEDS: CEFTRIAXONE 2 GM/50 ML (PMX) 50 ML IVPB SCH (16:23)
--- NOTE | 2018-07-27 17:07 | ECORPT ---
DATE OF SERVICE: 07/27/2018 REFERRING PHYSICIAN: Yogi Chapman MD REASON FOR EVALUATION: History of coronary artery disease and chest pain. DESCRIPTION OF TEST: The patient was brought to the heart station. Blood pressure was 145/65. She has received successful Lexiscan injection. She has some nonspecific ST-T changes on exam, which rem ained to be stable. She had some precordial discomfort, but no clear indication of ischemic decompen sation. The imaging portion will be reported separately. Dictated By: NELL IRENE MD ML/NTS Conf#: [id number] DID#: [id number] CC: YOGI CHAPMAN MD; STANLEY VENEGAS MD;*End*
[2018-07-27] MEDS: ACETAMINOPHEN 325 MG TAB PO PRN (22:41)
[2018-07-28] VITALS (11 sets, daily range): BP systolic 144–186; BP diastolic 66–95; PULSE 69–80; RESP 18–20
[2018-07-28] MEDS: ALBUTEROL/IPRATROPIUM (NEB) 3 ML AMP HHN SCH ×6 (01:00→20:41)
[2018-07-28] MEDS: CHOLECALCIFEROL 2,000 UNIT CAP PO SCH (08:14)
[2018-07-28] MEDS: ASPIRIN (EC) 81 MG TAB PO SCH (08:14)
--- NOTE | 2018-07-28 09:03 | RADRPT ---
Vent Rate: 88 bpm RR Interval: 680 msec [place] Interval: 157 msec QRS Duration: 100 msec QT Interval: 382 msec QTC Interval: 463 msec P-R-T [place]: 63 - 32 - -75 degrees Sinus rhythm...normal P axis, V-rate 50- 99 Probable anterior infarct, age indeterminate. Electronically Signed By: Tomás Rico
[2018-07-28] MEDS: FUROSEMIDE 20 MG TAB PO SCH (09:42)
--- NOTE | 2018-07-28 10:02 | PN ---
DATE: 07/28/2018 SUBJECTIVE: The patient had a Lexiscan yesterday. No other acute events noted. No hemoptysis, maciej temesis, hematochezia. OBJECTIVE: VITAL SIGNS: Blood pressure is 174/80, respirations 20, pulse 75, temperature 97.5. HEENT: Head is normocephalic. NECK: Supple. HEART: Regular rate. LUNGS: Show diminished breath sounds at the base. ABDOMEN: Soft, nontender to palpation without rebound or guarding. EXTREMITIES: Negative for clubbing, cyanosis, no edema. DERMATOLOGIC: No rashes. MUSCULOSKELETAL: No joint effusions. NEUROLOGIC: No change in exam. MEDICATIONS: The patient's medications have been reviewed. LABORATORY DATA: Has been reviewed. IMAGING STUDIES: Have been reviewed. ASSESSMENT AND PLAN: 1. Nonoliguric acute kidney injury with unknown baseline creatinine. Etiology of DIONISIO is secondary t o hemodynamics. Renal function has been improving. Continue current medical management, supportive care, renally dose all meds. 2. Anemia. Monitor H and H levels. 3. Mineral bone disorder. Monitor calcium and phosphorus levels. 4. Acute hypoxic respiratory failure secondary to CHF, continue diuretic therapy, monitor closely. 5. Non-STEMI. The patient's Lexiscan showed a previous history of infarct. Continue medical manage ment. Consider cardiac catheterization. 6. Decompensated systolic heart failure. Continue medical regimen. Continue diuretic therapy. 7. Transaminitis. Continue to monitor. 8. Obesity. Continue dietary modification. Dictated By: JIGNA VYAS DO NR/NTS Conf#: [id number] DID#: [id number] CC: BEVERLY COX MD; STANLEY VENEGAS MD; ADEBAYO TAPIA MD;*EndCC*
--- NOTE | 2018-07-28 13:43 | CONS ---
Assessment/Plan Assessment/Plan Hospital Course (Demo Recall) 1039 No acute events all noted Antimicrobials: Rocephin Physical examination: This is an obese well-developed elderly woman who is alert in no distress. Head atraumatic normocephalic neck is supple chest rise symmetrical breath sounds clear heart S1-S2 abdomen soft bowel sounds pre sent extremities without cyanosis Assessment: 1. Sepsis, present on admission 2. E. coli UTI with bacteremia 3. Non-ST elevation DC 4. History of permanent pacemaker Plan: Patient remains stable, continue present care, f/u repeat blood cultures. Anticipate dc on oral Levaquin to complete 2 weeks abx Consultation Date/Type/Reason Admit Date/Time July 24, 2018 at 13:02 Initial Consult Date Type of Consult id Requesting Provider: STANLEY VENEGAS Date/Time of Note DATE: 07/28/18 TIME: 13:42 Exam/Review of Systems Exam Vitals Vital Signs Date Temp Pulse Resp B/P (MAP) Pulse Ox O2 O2 Flow FiO2 Time Delivery Rate 07/28/18 71 12:00 07/28/18 98.8 20 171/83 94 Room Air 11:14 (112) 07/28/18 21 09:57 07/28/18 2.0 08:17 Intake and Output 07/27/18 07/27/18 07/28/18 1414:59 22:59 06:59 IntakeIntake Total 1200 ml 400 ml BalanceBalance 1200 ml 400 ml Results Result Diagram: 07/28/18 0615 07/28/18 0615 Results 24hrs Laboratory Tests Test 07/28/18 06:14 07/28/18 06:15 Prothrombin Time 36.1 #H Prothrombin Time Ratio 2.8 INR International Normalized Ratio 3.63 White Blood Count 8.3 # Red Blood Count 3.40 L Hemoglobin 10.6 L Hematocrit 32.7 L Mean Corpuscular Volume 96.2 Mean Corpuscular Hemoglobin 31.2 Mean Corpuscular Hemoglobin Concent 32.4 Red Cell Distribution Width 13.6 Platelet Count 108 L Mean Platelet Volume 11.0 H Immature Granulocytes % 0.600 H Neutrophils % 64.2 Lymphocytes % 20.3 Monocytes % 11.0 Eosinophils % 3.4 Basophils % 0.5 Nucleated Red Blood Cells % 0.0 Immature Granulocytes # 0.050 H Neutrophils # 5.3 Lymphocytes # 1.7 Monocytes # 0.9 Eosinophils # 0.3 Basophils # 0.0 Nucleated Red Blood Cells # 0.0 Sodium Level 141 Potassium Level 4.2 Chloride Level 112 H Carbon Dioxide Level 22 Anion Gap 7 Blood Urea Nitrogen 36 #H Creatinine 1.13 H Est Glomerular Filtrat Rate mL/min Glucose Level 104 Calcium Level 8.7 Phosphorus Level 2.6 Magnesium Level 2.1 Medications Medication Current Medications IV Flush (NS 3 ml) 3 ml PER PROTOCOL IV ; Start 07/24/18 at 14:00 Ondansetron HCl (Zofran Inj) 4 mg Q6H PRN IV NAUSEA/VOMITING; Start 07/24/18 at 14:00 Acetaminophen (Tylenol Tab) 650 mg Q6H PRN PO .PAIN 1-3 OR TEMP Last administered on 07/27/18at 22:41; Admin Dose 650 MG; Start 07/24/18 at 14:00 Acetaminophen/ Hydrocodone Bitart ([place] (5/325)) 1 tab Q6H PRN PO .MOD PAIN 4- 6; Start 07/24/18 at 14:00 Morphine Sulfate (morphine) 2 mg Q4H PRN IV .SEVERE PAIN 7-10; Start 07/24/18 at 14:00 Docusate Sodium (Colace) 100 mg Q12H PRN PO .CONSTIPATION Last administered on 07/26/18 08:04; Admin Dose 100 MG; Start 07/24/18 at 14:00 Zolpidem Tartrate (Ambien) 5 mg QHS PRN PO .INSOMNIA Last administered on 07/26/18 22:07; Admin Dose 5 MG; Start 07/24/18 at 14:00 Aspirin (Halfprin) 81 mg DAILY PO Last administered on 07/28/18 08:14; Admin Dose 81 MG; Start 07/25/18 at 09:00 Carvedilol (Coreg) 12.5 mg BID PO Last administered on 07/28/18 08:14; Admin Dose 12.5 MG; Start 07/24/18 at 21:00 Losartan Potassium (Cozaar) 100 mg DAILY PO ; Start 07/25/18 at 09:00; Status Hold Warfarin Sodium (Coumadin) 2.5 mg DAILY@1700 PO Last administered on 07/27/18at 16:23; Admin Dose 2.5 MG; Start 07/25/18 at 17:00; Status Hold Cholecalciferol (Vitamin D) 2,000 unit DAILY PO Last administered on 07/28/18 08:14; Admin Dose 2,000 UNIT; Start 07/25/18 at 09:00 Ceftriaxone Sodium 50 ml @ 100 mls/hr Q24H IVPB Last administered on 07/27/18at 16:23; Admin Dose 100 MLS/HR; Start 07/26/18 at 15:30; Stop 08/07/18 at 15:29 Albuterol/ Ipratropium (Duoneb) 3 ml Q4H RESP THERAPY HHN Last administered on 07/28/18at 09:46; Admin Dose 3 ML; Start 07/27/18 at 01:00 Furosemide (Lasix) 20 mg DAILY PO Last administered on 07/28/18at 09:42; Admin Dose 20 MG; Start 07/28/18 at 09:00 ED VIDAL NP July 28, 2018 13:43
--- NOTE | 2018-07-28 13:46 | PN ---
Date/Time of Note Date/Time of Note DATE: 07/28/18 TIME: 13:45 Assessment/Plan VTE Prophylaxis Risk score (from Ns)>0 risk: 7 SCD applied (from Ns): Yes Pharmacological prophylaxis: heparin Lines/Catheters [facility] [place] Urinary Cath still in place: No Assessment/Plan Hospital Course CAD with NSTEMI and systolic CHF: - Continue aspirin, statin as outpatient Sepsis with bacteremia secondary to UTI - complete 2 weeks levaquin at discharge DIONISIO: - Resolveing 7. Obesity Lifestyle changes 8. Hypertension Continue Coreg Hold losartan secondary to likely acute kidney injury 9. Questionable history of cardiac arrhythmia On Coumadin Prophylaxis: On Coumadin DC planning: Home on PO abx tomorrow Result Diagram: 07/28/1815 07/28/18 0615 Results 24hrs Laboratory Tests Test 07/28/18 06:14 07/28/18 06:15 Prothrombin Time 36.1 #H Prothrombin Time Ratio 2.8 INR International Normalized Ratio 3.63 White Blood Count 8.3 # Red Blood Count 3.40 L Hemoglobin 10.6 L Hematocrit 32.7 L Mean Corpuscular Volume 96.2 Mean Corpuscular Hemoglobin 31.2 Mean Corpuscular Hemoglobin Concent 32.4 Red Cell Distribution Width 13.6 Platelet Count 108 L Mean Platelet Volume 11.0 H Immature Granulocytes % 0.600 H Neutrophils % 64.2 Lymphocytes % 20.3 Monocytes % 11.0 Eosinophils % 3.4 Basophils % 0.5 Nucleated Red Blood Cells % 0.0 Immature Granulocytes # 0.050 H Neutrophils # 5.3 Lymphocytes # 1.7 Monocytes # 0.9 Eosinophils # 0.3 Basophils # 0.0 Nucleated Red Blood Cells # 0.0 Sodium Level 141 Potassium Level 4.2 Chloride Level 112 H Carbon Dioxide Level 22 Anion Gap 7 Blood Urea Nitrogen 36 #H Creatinine 1.13 H Est Glomerular Filtrat Rate mL/min Glucose Level 104 Calcium Level 8.7 Phosphorus Level 2.6 Magnesium Level 2.1 Subjective 24 Hr Interval Summary Free Text/Dictation Feeling well NST shows copmleted LAD infarct and low EF Exam/Review of Systems Exam Vitals Vital Signs Date Temp Pulse Resp B/P (MAP) Pulse Ox O2 O2 Flow FiO2 Time Delivery Rate 07/28/18 71 12:00 07/28/18 98.8 20 171/83 94 Room Air 11:14 (112) 07/28/18 21 09:57 07/28/18 2.0 08:17 Intake and Output 07/27/18 07/27/18 07/28/18 1414:59 22:59 06:59 IntakeIntake Total 1200 ml 400 ml BalanceBalance 1200 ml 400 ml Results Results 24hrs Laboratory Tests Test 07/28/18 06:14 07/28/18 06:15 Prothrombin Time 36.1 #H Prothrombin Time Ratio 2.8 INR International Normalized Ratio 3.63 White Blood Count 8.3 # Red Blood Count 3.40 L Hemoglobin 10.6 L Hematocrit 32.7 L Mean Corpuscular Volume 96.2 Mean Corpuscular Hemoglobin 31.2 Mean Corpuscular Hemoglobin Concent 32.4 Red Cell Distribution Width 13.6 Platelet Count 108 L Mean Platelet Volume 11.0 H Immature Granulocytes % 0.600 H Neutrophils % 64.2 Lymphocytes % 20.3 Monocytes % 11.0 Eosinophils % 3.4 Basophils % 0.5 Nucleated Red Blood Cells % 0.0 Immature Granulocytes # 0.050 H Neutrophils # 5.3 Lymphocytes # 1.7 Monocytes # 0.9 Eosinophils # 0.3 Basophils # 0.0 Nucleated Red Blood Cells # 0.0 Sodium Level 141 Potassium Level 4.2 Chloride Level 112 H Carbon Dioxide Level 22 Anion Gap 7 Blood Urea Nitrogen 36 #H Creatinine 1.13 H Est Glomerular Filtrat Rate mL/min Glucose Level 104 Calcium Level 8.7 Phosphorus Level 2.6 Magnesium Level 2.1 Medications Medication Current Medications IV Flush (NS 3 ml) 3 ml PER PROTOCOL IV ; Start 07/24/18 at 14:00 Ondansetron HCl (Zofran Inj) 4 mg Q6H PRN IV NAUSEA/VOMITING; Start 07/24/18 at 14:00 Acetaminophen (Tylenol Tab) 650 mg Q6H PRN PO .PAIN 1-3 OR TEMP Last administered on 07/27/18at 22:41; Admin Dose 650 MG; Start 07/24/18 at 14:00 Acetaminophen/ Hydrocodone Bitart ([place] (5/325)) 1 tab Q6H PRN PO .MOD PAIN 4- 6; Start 07/24/18 at 14:00 Morphine Sulfate (morphine) 2 mg Q4H PRN IV .SEVERE PAIN 7-10; Start 07/24/18 at 14:00 Docusate Sodium (Colace) 100 mg Q12H PRN PO .CONSTIPATION Last administered on 07/26/18 08:04; Admin Dose 100 MG; Start 07/24/18 at 14:00 Zolpidem Tartrate (Ambien) 5 mg QHS PRN PO .INSOMNIA Last administered on 07/26/18 22:07; Admin Dose 5 MG; Start 07/24/18 at 14:00 Aspirin (Halfprin) 81 mg DAILY PO Last administered on 07/28/18 08:14; Admin Dose 81 MG; Start 07/25/18 at 09:00 Carvedilol (Coreg) 12.5 mg BID PO Last administered on 07/28/18 08:14; Admin Dose 12.5 MG; Start 07/24/18 at 21:00 Losartan Potassium (Cozaar) 100 mg DAILY PO ; Start 07/25/18 at 09:00; Status Hold Warfarin Sodium (Coumadin) 2.5 mg DAILY@1700 PO Last administered on 07/27/18 16:23; Admin Dose 2.5 MG; Start 07/25/18 at 17:00; Status Hold Cholecalciferol (Vitamin D) 2,000 unit DAILY PO Last administered on 07/28/18 08:14; Admin Dose 2,000 UNIT; Start 07/25/18 at 09:00 Ceftriaxone Sodium 50 ml @ 100 mls/hr Q24H IVPB Last administered on 07/27/18 16:23; Admin Dose 100 MLS/HR; Start 07/26/18 at 15:30; Stop 08/07/18 at 15:29 Albuterol/ Ipratropium (Duoneb) 3 ml Q4H RESP THERAPY HHN Last administered on 07/28/18 13:42; Admin Dose 3 ML; Start 07/27/18 at 01:00 Furosemide (Lasix) 20 mg DAILY PO Last administered on 07/28/18 09:42; Admin Dose 20 MG; Start 07/28/18 at 09:00 ADEBAYO TAPIA MD July 28, 2018 13:46
[2018-07-28] MEDS: CEFTRIAXONE 2 GM/50 ML (PMX) 50 ML IVPB SCH (15:27)
[2018-07-28] MEDS ORDERED: WARFARIN 1 MG TAB PO SCH (17:00)
--- NOTE | 2018-07-28 20:01 | CONS ---
Assessment/Plan Assessment/Plan Hospital Course (Demo Recall) IMPRESSION: 1. Positive troponin, assess significance in the setting of renal failure-now trended negative and denies cp 2. Chest pain, somewhat poorly described and currently resolved. 3. Abnormal electrocardiogram with poor R-wave progression and lateral T-wave inversions. 4. Hypertension with currently borderline hypotension-improved with IVF hydration 5. Fevers. 6. Renal failure. 7. Leukopenia. 8. History of ICD. 9. Coagulopathy secondary to Coumadin. 10. Questionable history of cardiac arrhythmia. 11. Probable history of cardiomyopathy.-EF 30% by echo this admit. Now s/p Lexiscan with scar EF 27. NO sig ischemia 12. ELevated LFT's Recc: -Tele -Continue coreg -ARB held in the settng of renal failure per nephrology and thus will start low dose hydralazine afterload reduction at tis time -Continue asa -Follow java xml developer and volume status closely on current IVF hydration -follow therapeutic INR closely and continue coumadin for now. ? indication arrythmia -Continue abx's and f/u cx data Consultation Date/Type/Reason Admit Date/Time July 24, 2018 at 13:02 Initial Consult Date 07/25/18 Type of Consult Cardiology Reason for Consultation positive troponin Requesting Provider: STANLEY VENEGAS Date/Time of Note DATE: 07/28/18 TIME: 19:57 Exam/Review of Systems Vital Signs Vitals Vital Signs Date Temp Pulse Resp B/P (MAP) Pulse Ox O2 O2 Flow FiO2 Time Delivery Rate 07/28/18 80 18 93 21 17:23 07/28/18 98.2 150/82 Room Air 15:29 (104) 07/28/18 2.0 08:17 Intake and Output 07/27/18 07/27/18 07/28/18 1515:00 23:00 07:00 IntakeIntake Total 1200 ml 400 ml BalanceBalance 1200 ml 400 ml Exam Exam Review of Systems: CONSTITUTIONAL: No fevers, chills. PULMONARY: No sob CARDIOVASCULAR: No chest pain/palpitations GASTROINTESTINAL: No nausea/vomiting. GENITOURINARY: No hematuria/dysuria. MUSCULOSKELETAL: No myagias/arthalgias. PSYCHIATRIC: The patient denies depression. NEUROLOGIC: No weakness Constitutional: alert Psych: no complaints Head: normocephalic ENMT: mucosa pink and moist Neck: supple, jvd (9 cm water) Respiratory: diminished breath sounds Cardiovascular: regular rate and rhythm Gastrointestinal: soft, non-tender Musculoskeletal: muscle tone (normal) Extremities: edema (none) Neurological: other (No focal deficits) Labs Result Diagram: 07/28/18 0615 07/28/18 0615 Results 24hrs Laboratory Tests Test 07/28/18 06:14 07/28/18 06:15 Prothrombin Time 36.1 #H Prothrombin Time Ratio 2.8 INR International Normalized Ratio 3.63 White Blood Count 8.3 # Red Blood Count 3.40 L Hemoglobin 10.6 L Hematocrit 32.7 L Mean Corpuscular Volume 96.2 Mean Corpuscular Hemoglobin 31.2 Mean Corpuscular Hemoglobin Concent 32.4 Red Cell Distribution Width 13.6 Platelet Count 108 L Mean Platelet Volume 11.0 H Immature Granulocytes % 0.600 H Neutrophils % 64.2 Lymphocytes % 20.3 Monocytes % 11.0 Eosinophils % 3.4 Basophils % 0.5 Nucleated Red Blood Cells % 0.0 Immature Granulocytes # 0.050 H Neutrophils # 5.3 Lymphocytes # 1.7 Monocytes # 0.9 Eosinophils # 0.3 Basophils # 0.0 Nucleated Red Blood Cells # 0.0 Sodium Level 141 Potassium Level 4.2 Chloride Level 112 H Carbon Dioxide Level 22 Anion Gap 7 Blood Urea Nitrogen 36 #H Creatinine 1.13 H Est Glomerular Filtrat Rate mL/min Glucose Level 104 Calcium Level 8.7 Phosphorus Level 2.6 Magnesium Level 2.1 Medications Medications Current Medications IV Flush (NS 3 ml) 3 ml PER PROTOCOL IV ; Start 07/24/18 at 14:00 Ondansetron HCl (Zofran Inj) 4 mg Q6H PRN IV NAUSEA/VOMITING; Start 07/24/18 at 14:00 Acetaminophen (Tylenol Tab) 650 mg Q6H PRN PO .PAIN 1-3 OR TEMP Last administered on 07/27/18at 22:41; Admin Dose 650 MG; Start 07/24/18 at 14:00 Acetaminophen/ Hydrocodone Bitart ([place] (5/325)) 1 tab Q6H PRN PO .MOD PAIN 4- 6; Start 07/24/18 at 14:00 Morphine Sulfate (morphine) 2 mg Q4H PRN IV .SEVERE PAIN 7-10; Start 07/24/18 at 14:00 Docusate Sodium (Colace) 100 mg Q12H PRN PO .CONSTIPATION Last administered on 07/26/18 08:04; Admin Dose 100 MG; Start 07/24/18 at 14:00 Zolpidem Tartrate (Ambien) 5 mg QHS PRN PO .INSOMNIA Last administered on 07/26/18 22:07; Admin Dose 5 MG; Start 07/24/18 at 14:00 Aspirin (Halfprin) 81 mg DAILY PO Last administered on 07/28/18 08:14; Admin Dose 81 MG; Start 07/25/18 at 09:00 Carvedilol (Coreg) 12.5 mg BID PO Last administered on 07/28/18 08:14; Admin Dose 12.5 MG; Start 07/24/18 at 21:00 Losartan Potassium (Cozaar) 100 mg DAILY PO ; Start 07/25/18 at 09:00; Status Hold Cholecalciferol (Vitamin D) 2,000 unit DAILY PO Last administered on 07/28/18 08:14; Admin Dose 2,000 UNIT; Start 07/25/18 at 09:00 Ceftriaxone Sodium 50 ml @ 100 mls/hr Q24H IVPB Last administered on 07/28/18 15:27; Admin Dose 100 MLS/HR; Start 07/26/18 at 15:30; Stop 08/07/18 at 15:29 Albuterol/ Ipratropium (Duoneb) 3 ml Q4H RESP THERAPY HHN Last administered on 07/28/18 17:13; Admin Dose 3 ML; Start 07/27/18 at 01:00 Furosemide (Lasix) 20 mg DAILY PO Last administered on 07/28/18 09:42; Admin Dose 20 MG; Start 07/28/18 at 09:00 Warfarin Sodium (Coumadin) 1 mg DAILY@1700 PO ; Start 07/28/18 at 17:00; Status Hold YOGI COTTO July 28, 2018 20:01
[2018-07-29] VITALS (9 sets, daily range): BP systolic 145–180; BP diastolic 70–88; PULSE 70–80; RESP 18–19
[2018-07-29] MEDS: ALBUTEROL/IPRATROPIUM (NEB) 3 ML AMP HHN SCH ×5 (00:37→16:12)
[2018-07-29] MEDS: ACETAMINOPHEN 325 MG TAB PO PRN (04:10)
[2018-07-29] MEDS ORDERED: hydrALAzine 20 MG INJ IV PRN (04:30)
[2018-07-29] MEDS: CHOLECALCIFEROL 2,000 UNIT CAP PO SCH (09:43)
[2018-07-29] MEDS: ASPIRIN (EC) 81 MG TAB PO SCH (09:43)
[2018-07-29] MEDS: FUROSEMIDE 20 MG TAB PO SCH (09:44)
--- NOTE | 2018-07-29 10:49 | PN ---
DATE: 07/29/2018 SUBJECTIVE: The patient this morning was having episode of epistaxis. The patient is also noted to be hypertensive. No other acute events noted. No hemoptysis, hematemesis, or hematochezia. OBJECTIVE: VITAL SIGNS: Blood pressure 171/88, respirations 18, pulse 79, temperature 97.5. HEENT: Head is normocephalic. NECK: Supple. HEART: Regular rate. LUNGS: Show diminished breath sounds at the base. ABDOMEN: Soft, nontender to palpation without rebound or guarding. EXTREMITIES: Negative for clubbing, cyanosis, no edema. DERMATOLOGIC: No rashes. MUSCULOSKELETAL: No joint effusion. NEUROLOGIC: No change in exam. MEDICATIONS: Reviewed. LABORATORY DATA: Reviewed. ASSESSMENT AND PLAN: 1. Nonoliguric acute kidney injury on top of chronic kidney disease with unknown baseline creatinine . Etiology of acute kidney injury is secondary to hemodynamics. Renal function has been improving. Continue current treatment plans, supportive care, renally dose all medications. 2. Anemia. Monitor hemoglobin and hematocrit levels. 3. Mineral bone disorder. Monitor calcium and phosphorus levels. 4. Cardiomyopathy. Etiology is possibly ischemic. The patient is status post Lexiscan. The patien t has EF approximately 30%. Continue medical management. Follow up with cardiology. The patient's ARB has been held in the setting of acute kidney injury. 5. Acute hypoxemic respiratory failure secondary to congestive heart failure. The patient is clinic ally improved. Continue diuretic therapy. Continue nebulizers. 6. Epistaxis, likely due to hypertension. Continue to monitor. 7. Hypertensive urgency. Continue current blood pressure regimen. We will adjust medications. Def er an ANALILIA inhibitor or ARB in the setting of acute kidney injury. 8. Transaminitis. Continue to monitor. 9. Obesity. Continue dietary modification. Dictated By: JIGNA VYAS DO NR/NTS Conf#: [id number] DID#: [id number] CC: BEVERLY COX MD; ADEBAYO TAPIA MD; STANLEY VENEGAS MD;*EndCC*
--- NOTE | 2018-07-29 14:09 | CONS ---
Assessment/Plan Assessment/Plan Hospital Course (Demo Recall) No acute events Antimicrobials: Rocephin Physical examination: This is an obese well-developed elderly woman who is alert in no distress. Head atraumatic normocephalic neck is supple chest rise symmetrical breath sounds clear heart S1-S2 abdomen soft bowel sounds present extremities without cyanosis Assessment: 1. Sepsis, present on admission 2. E. coli UTI with bacteremia 3. Non-ST elevation SD 4. History of permanent pacemaker Plan: Patient remains stable, repeat blood cultures neg. Anticipate dc on oral Levaquin to complete 2 weeks abx Consultation Date/Type/Reason Admit Date/Time July 24, 2018 at 13:02 Initial Consult Date Type of Consult id Requesting Provider: STANLEY VENEGAS Date/Time of Note DATE: 07/29/18 TIME: 14:08 Exam/Review of Systems Exam Vitals Vital Signs Date Temp Pulse Resp B/P (MAP) Pulse Ox O2 O2 Flow FiO2 Time Delivery Rate 07/29/18 Room Air 12:32 07/29/18 70 12:00 07/29/18 98.0 18 145/70 96 11:10 (95) 07/29/18 21 09:49 07/28/18 2.0 20:00 Intake and Output 07/28/18 07/28/18 07/29/18 1515:00 23:00 07:00 IntakeIntake Total 700 ml 400 ml OutputOutput Total 1600 ml BalanceBalance -900 ml 400 ml Results Result Diagram: 07/28/18 0615 07/29/18 0726 Results 24hrs Laboratory Tests Test 07/29/18 07:26 Prothrombin Time 27.0 #H Prothrombin Time Ratio 2.1 INR International Normalized Ratio 2.49 Sodium Level 141 Potassium Level 4.1 Chloride Level 108 Carbon Dioxide Level 25 Anion Gap 8 Blood Urea Nitrogen 27 H Creatinine 1.00 Est Glomerular Filtrat Rate mL/min Glucose Level 115 Calcium Level 9.0 Phosphorus Level 2.7 Magnesium Level 1.9 Medications Medication Current Medications IV Flush (NS 3 ml) 3 ml PER PROTOCOL IV ; Start 07/24/18 at 14:00 Ondansetron HCl (Zofran Inj) 4 mg Q6H PRN IV NAUSEA/VOMITING; Start 07/24/18 at 14:00 Acetaminophen (Tylenol Tab) 650 mg Q6H PRN PO .PAIN 1-3 OR TEMP Last adm inistered on 07/29/18 04:10; Admin Dose 650 MG; Start 07/24/18 at 14:00 Acetaminophen/ Hydrocodone Bitart ([place] (5/325)) 1 tab Q6H PRN PO .MOD PAIN 4- 6; Start 07/24/18 at 14:00 Morphine Sulfate (morphine) 2 mg Q4H PRN IV .SEVERE PAIN 7-10; Start 07/24/18 at 14:00 Docusate Sodium (Colace) 100 mg Q12H PRN PO .CONSTIPATION Last administered on 07/26/18 08:04; Admin Dose 100 MG; Start 07/24/18 at 14:00 Zolpidem Tartrate (Ambien) 5 mg QHS PRN PO .INSOMNIA Last administered on 07/26/18 22:07; Admin Dose 5 MG; Start 07/24/18 at 14:00 Aspirin (Halfprin) 81 mg DAILY PO Last administered on 07/29/18 09:43; Admin Dose 81 MG; Start 07/25/18 at 09:00 Losartan Potassium (Cozaar) 100 mg DAILY PO ; Start 07/25/18 at 09:00; Status Hold Cholecalciferol (Vitamin D) 2,000 unit DAILY PO Last administered on 07/29/18 09:43; Admin Dose 2,000 UNIT; Start 07/25/18 at 09:00 Ceftriaxone Sodium 50 ml @ 100 mls/hr Q24H IVPB Last administered on 07/28/18 15:27; Admin Dose 100 MLS/HR; Start 07/26/18 at 15:30; Stop 08/07/18 at 15:29 Albuterol/ Ipratropium (Duoneb) 3 ml Q4H RESP THERAPY HHN Last administered on 07/29/18 09:46; Admin Dose 3 ML; Start 07/27/18 at 01:00 Furosemide (Lasix) 20 mg DAILY PO Last administered on 07/29/18 09:44; Admin Dose 20 MG; Start 07/28/18 at 09:00 Warfarin Sodium (Coumadin) 1 mg DAILY@1700 PO ; Start 07/28/18 at 17:00 Hydralazine HCl (Apresoline) 25 mg Q8 PO Last administered on 07/29/18 14:00; Admin Dose 25 MG; Start 07/28/18 at 22:00 Hydralazine HCl (Apresoline) 10 mg Q4H PRN IV SYSTOLIC BP >170 Last administered on 07/29/18at 05:07; Admin Dose 10 MG; Start 07/29/18 at 04:30 Carvedilol (Coreg) 25 mg BID PO Last administered on 07/29/18at 09:44; Admin Dose 25 MG; Start 07/29/18 at 09:00 ED VIDAL NP July 29, 2018 14:09
[2018-07-29] MEDS ORDERED: LEVO500T10 PO (14:52)
--- NOTE | 2018-07-29 14:53 | PDOCDIS ---
Discharge Instructions DIAGNOSIS Discharge Diagnosis Sepsis Urinary infection CONDITION [id number] Patient Condition: [id number] Stable FOLLOW UP/APPOINTMENTS Follow-up Plan Complete your antibiotics as prescribed. Your prescription is available at [facility]. Call me at [phone] if any issues See your doctor CYN to have your INR checked ADEBAYO TAPIA MD July 29, 2018 14:53
--- NOTE | 2018-07-29 14:55 | DS ---
Date/Time of Note Date/Time of Note DATE: 07/29/18 TIME: 14:53 Discharge Summary Admission/Discharge Info Admit Date/Time July 24, 2018 at 13:02 Discharge Date/Time Discharge Diagnosis Sepsis Urinary infection Patient Condition: Stable Hospital Course Found to have sepsis. She was started on broad spectrum antibiotics with improvement. She grew E coli in the blood in urine sensitive to levaquin which was prescribed at discharge Had a NSTEMI as well. Nuclear stress testing was performed showing reduced EF with no acute ischemia, old scar. She was conitnue on beta blockade She was continue on warfarin from home, likely for paroxysmal a fib per history She had an DIONISIO which resolved Home Meds Reported Medications Aspirin (Low Dose Aspirin) 81 Mg Tablet.dr, 81 MG PO DAILY, #30 TAB 07/24/18 Ergocalciferol (Vitamin D2) (VITAMIN D2) 2,000 Unit Tablet, 2000 UNIT PO DAILY, TAB 07/24/18 Carvedilol* (Carvedilol*) 12.5 Mg Tablet, 12.5 MG PO BID, #60 TAB 07/24/18 Furosemide* (Furosemide*) 40 Mg Tablet, 40 MG PO DAILY, TAB 07/24/18 Warfarin Sodium* (Coumadin*) 2.5 Mg Tablet, 2.5 MG PO DAILY, TAB 07/24/18 Losartan Potassium* (Losartan Potassium*) 100 Mg Tablet, 100 MG PO DAILY, TAB 07/24/18 Follow-up Plan Complete your antibiotics as prescribed. Your prescription is available at [facility]. Call me at [phone] if any issues See your doctor CYN to have your INR checked Primary Care Provider Care Physician No Primary Pending Labs Laboratory Tests Test 07/29/18 07:26 Prothrombin Time 27.0 Sec (11.9-14.9) Prothrombin Time Ratio 2.1 INR International Normalized Ratio 2.49 Sodium Level 141 mmol/L (135-144) Potassium Level 4.1 mmol/L (3.5-5.1) Chloride Level 108 mmol/L (97-110) Carbon Dioxide Level 25 mmol/L (21-31) Anion Gap 8 (5-13) Blood Urea Nitrogen 27 mg/dl (7-20) Creatinine 1.00 mg/dl (0.44-1.00) Est Glomerular Filtrat Rate mL/min mL/min (>60) Glucose Level 115 mg/dl (70-220) Calcium Level 9.0 mg/dl (8.4-10.2) Phosphorus Level 2.7 mg/dl (2.5-4.9) Magnesium Level 1.9 mg/dl (1.7-2.5) ADEBAYO TAPIA MD July 29, 2018 14:55
[2018-07-29] MEDS: CEFTRIAXONE 2 GM/50 ML (PMX) 50 ML IVPB SCH (16:18)
--- NOTE | 2018-07-29 18:25 | CONS ---
Assessment/Plan Assessment/Plan Hospital Course (Demo Recall) IMPRESSION: 1. Positive troponin, assess significance in the setting of renal failure-now trended negative and denies cp 2. Chest pain, somewhat poorly described and currently resolved. 3. Abnormal electrocardiogram with poor R-wave progression and lateral T-wave inversions. 4. Hypertension with currently borderline hypotension-improved with IVF hydration 5. Fevers. 6. Renal failure. 7. Leukopenia. 8. History of ICD. 9. Coagulopathy secondary to Coumadin. 10. Questionable history of cardiac arrhythmia. 11. Probable history of cardiomyopathy.-EF 30% by echo this admit. Now s/p Lexiscan with scar EF 27. NO sig ischemia 12. ELevated LFT's Recc: -Tele -Continue coreg -ARB held in the settng of renal failure per nephrology and thus started hydralazine afterload reduction at tis time which I will uptitrate -Continue asa -Follow sharepoint administrator and volume status closely on current IVF hydration -follow therapeutic INR closely and continue coumadin for now. ? indication arrythmia -Continue abx's and f/u cx data Consultation Date/Type/Reason Admit Date/Time July 24, 2018 at 13:02 Initial Consult Date 07/25/18 Type of Consult Cardiology Reason for Consultation positive troponin Requesting Provider: STANLEY VENEGAS Date/Time of Note DATE: 07/29/18 TIME: 18:22 Exam/Review of Systems Vital Signs Vitals Vital Signs Date Temp Pulse Resp B/P (MAP) Pulse Ox O2 O2 Flow FiO2 Time Delivery Rate 07/29/18 72 18 94 21 16:12 07/29/18 Room Air 12:32 07/29/18 98.0 145/70 11:10 (95) 07/28/18 2.0 20:00 Intake and Output 07/28/18 07/28/18 07/29/18 1515:00 23:00 07:00 IntakeIntake Total 700 ml 400 ml OutputOutput Total 1600 ml BalanceBalance -900 ml 400 ml Exam Exam Review of Systems: CONSTITUTIONAL: No fevers, chills. PULMONARY: No sob CARDIOVASCULAR: No chest pain/palpitations GASTROINTESTINAL: No nausea/vomiting. GENITOURINARY: No hematuria/dysuria. MUSCULOSKELETAL: No myagias/arthalgias. PSYCHIATRIC: The patient denies depression. NEUROLOGIC: No weakness Constitutional: alert, oriented Psych: no complaints Head: normocephalic ENMT: mucosa pink and moist Neck: supple, jvd (9 cm water) Respiratory: clear to auscultation Cardiovascular: regular rate and rhythm Gastrointestinal: soft, non-tender Musculoskeletal: muscle tone (normal) Extremities: edema (none) Neurological: other (No focal defiicts) Labs Result Diagram: 07/28/18 0615 07/29/18 0726 Results 24hrs Laboratory Tests Test 07/29/18 07:26 Prothrombin Time 27.0 #H Prothrombin Time Ratio 2.1 INR International Normalized Ratio 2.49 Sodium Level 141 Potassium Level 4.1 Chloride Level 108 Carbon Dioxide Level 25 Anion Gap 8 Blood Urea Nitrogen 27 H Creatinine 1.00 Est Glomerular Filtrat Rate mL/min Glucose Level 115 Calcium Level 9.0 Phosphorus Level 2.7 Magnesium Level 1.9 Medications Medications Current Medications IV Flush (NS 3 ml) 3 ml PER PROTOCOL IV ; Start 07/24/18 at 14:00 Ondansetron HCl (Zofran Inj) 4 mg Q6H PRN IV NAUSEA/VOMITING; Start 07/24/18 at 14:00 Acetaminophen (Tylenol Tab) 650 mg Q6H PRN PO .PAIN 1-3 OR TEMP Last administered on 07/29/18at 04:10; Admin Dose 650 MG; Start 07/24/18 at 14:00 Acetaminophen/ Hydrocodone Bitart (Zahl (5/325)) 1 tab Q6H PRN PO .MOD PAIN 4- 6; Start 07/24/18 at 14:00 Morphine Sulfate (morphine) 2 mg Q4H PRN IV .SEVERE PAIN 7-10; Start 07/24/18 at 14:00 Docusate Sodium (Colace) 100 mg Q12H PRN PO .CONSTIPATION Last administered on 07/26/18at 08:04; Admin Dose 100 MG; Start 07/24/18 at 14:00 Zolpidem Tartrate (Ambien) 5 mg QHS PRN PO .INSOMNIA Last administered on 07/26/18at 22:07; Admin Dose 5 MG; Start 07/24/18 at 14:00 Aspirin (Halfprin) 81 mg DAILY PO Last administered on 07/29/18at 09:43; Admin Dose 81 MG; Start 07/25/18 at 09:00 Losartan Potassium (Cozaar) 100 mg DAILY PO ; Start 07/25/18 at 09:00; Status Hold Cholecalciferol (Vitamin D) 2,000 unit DAILY PO Last administered on 07/29/18 09:43; Admin Dose 2,000 UNIT; Start 07/25/18 at 09:00 Ceftriaxone Sodium 50 ml @ 100 mls/hr Q24H IVPB Last administered on 07/29/18 16:18; Admin Dose 100 MLS/HR; Start 07/26/18 at 15:30; Stop 08/07/18 at 15:29 Albuterol/ Ipratropium (Duoneb) 3 ml Q4H RESP THERAPY HHN Last administered on 07/29/18 16:12; Admin Dose 3 ML; Start 07/27/18 at 01:00 Furosemide (Lasix) 20 mg DAILY PO Last administered on 07/29/18 09:44; Admin D ose 20 MG; Start 07/28/18 at 09:00 Warfarin Sodium (Coumadin) 1 mg DAILY@1700 PO Last administered on 07/29/18 16:23; Admin Dose 1 MG; Start 07/28/18 at 17:00 Hydralazine HCl (Apresoline) 25 mg Q8 PO Last administered on 07/29/18 14:00; Admin Dose 25 MG; Start 07/28/18 at 22:00 Hydralazine HCl (Apresoline) 10 mg Q4H PRN IV SYSTOLIC BP >170 Last administered on 07/29/18 05:07; Admin Dose 10 MG; Start 07/29/18 at 04:30 Carvedilol (Coreg) 25 mg BID PO Last administered on 07/29/18 09:44; Admin Dose 25 MG; Start 07/29/18 at 09:00 YOGI COTTO July 29, 2018 18:25
== END 2018-07-29 19:35 | disposition home or self-care (01) | DRG 871 ==
LOC: E/R 10:39 → TEL 13:02
PROVIDERS: ADMIT Internal Medicine; ATTEND Internal Medicine
PROC: 5A09357 Assistance with Respiratory Ventilation, Less than 24 Consecutive Hours, Continuous Positive Airway Pressure (ICD-10-PCS; principal; 2018-07-26)
DX: A41.51 Sepsis due to Escherichia coli [E. coli] (principal); I21.A1 Myocardial infarction type 2; I50.41 Acute combined systolic (congestive) and diastolic (congestive) heart failure; J96.01 Acute respiratory failure with hypoxia; N17.9 Acute kidney failure, unspecified; I13.0 Hypertensive heart and chronic kidney disease with heart failure and stage 1 through stage 4 chronic kidney disease, or unspecified chronic kidney disease; N39.0 Urinary tract infection, site not specified; R65.20 Severe sepsis without septic shock; D63.1 Anemia in chronic kidney disease; E66.9 Obesity, unspecified; I25.5 Ischemic cardiomyopathy; I25.2 Old myocardial infarction; I25.10 Atherosclerotic heart disease of native coronary artery without angina pectoris; K80.20 Calculus of gallbladder without cholecystitis without obstruction; N18.9 Chronic kidney disease, unspecified; R73.03 Prediabetes; R79.1 Abnormal coagulation profile; R94.31 Abnormal electrocardiogram [ECG] [EKG]; B96.20 Unspecified Escherichia coli [E. coli] as the cause of diseases classified elsewhere; Z68.33 Body mass index [BMI] 33.0-33.9, adult; Z95.810 Presence of automatic (implantable) cardiac defibrillator; Z79.01 Long term (current) use of anticoagulants; Z79.82 Long term (current) use of aspirin
CPT/HCPCS: 36600; 71045; 76700; 78452; 80048; 80053; 80061; 81001; 81003; 82043; 82150; 82550; 82553; 82607; 82746; 82803; 83036; 83690; 83735; 83880; 84100; 84155; 84300; 84436; 84479; 84484; 85025; 85378; 85610; 85730; 86704; 86709; 86803; 87086; 87340; 93005; 93017; 93306; 94640; 94644; 94660; 94664; 97116; 97161; 97530; A9500; A9505; J0360; J0692; J0696; J1940; J2543; J2785; J7030; J7040